=== PATIENT | female | born 1935 | race Caucasian/White ===

== ENCOUNTER 2020-03-16 18:58 | Emergency (ER) | payer OTHER, SELFPAY ==
[2020-03-16 19:18] VITALS: BP 180/92; PULSE 85; RESP 18; TEMP 37.3; O2SAT 97
--- NOTE | 2020-03-16 19:25 | ED.NAVMDI ---
HPI - Nausea/Vomiting/Diarrhea General Chief complaint: Nausea/Vomiting/Diarrhea Stated complaint: Nausea/Vomitting Time Seen by Provider: 03/16/20 19:18 Source: patient and RN notes reviewed Mode of arrival: ambulatory Limitations: no limitations History of Present Illness HPI Narrative: 84 year old female who presents to [facility] care with complaints of nausea and vomiting since 0700 this morning. Patient denies any pain to her abdomen, states that she can't even hold down water. Patient states that she called her doctor's office and they told her to come into office if it continued but she states that it had decreased and then has increased again. Patient states that she has been urinating today and she did have one diarrhea stool. Patient denies any fevers, chills, or sweats, denies any cough or any shortness of breath. MD elicited complaint: nausea, vomiting and diarrhea Onset (ago): hour(s) Description of vomiting: food contents and watery Description of diarrhea: lose Associated nausea: Yes Associated abdominal pain: No Relieving factors: none Treatment prior to arrival: none Related Data Home Medications Medication Instructions Recorded Confirmed hydrochlorothiazide 12.5 mg DAILY 03/16/20 03/16/20 Allergies Allergy/AdvReac Type Severity Reaction Status Date / Time No Known Allergies Allergy Mild Verified 03/16/20 19:04 Review of Systems Review of Systems: Narrative: CONSTITUTIONAL: Denies fever, chills, or sweats. EYES: Denies visual changes, redness, or discharge. ENT: Denies rhinorrhea, congestion, sore throat, or otalgia. CARDIOVASCULAR: Denies chest pain, palpitations, or edema. RESPIRATORY: Denies cough or dyspnea. GASTROINTESTINAL: Denies abdominal pain,positive for nausea, vomiting,and one small loose stool GENITOURINARY: Denies dysuria or hematuria. SKIN: Denies rash or itching. MUSCULOSKELETAL: Denies back pain, joint pain, or myalgia. NEUROLOGIC: Denies headache, numbness, or weakness. PSYCHIATRIC: Denies anxiety or depression. All systems reviewed & are unremarkable except as noted in HPI and below PMFSH Past Medical History Medical History (Updated 03/17/20 @ 00:00 by Bipin Longo) Hyperlipidemia Hypertension Surgical History Surgical History (Updated 03/16/20 @ 19:29 by Katherine Bailey NP) H/O hernia repair History of partial hysterectomy Hx of tonsillectomy Social History Social History (Updated 03/16/20 @ 19:29 by Katherine Bailey NP) Smoking status: Never smoker Occupation/Education: retired Gender identity (if verbalized by the patient): Female Comments At time of signature, agree with nursing past medical, surgical, social history. There is no relevant family history pertinent to the presenting complaint Exam Narrative: Exam Narrative: GENERAL: Well-appearing, well-nourished, and in no acute distress. HEAD: Normocephalic, atraumatic. EYES: PERRLA and EOMI. ENT: Nares clear, no rhinorrhea or epistaxis. Mucous membranes moist. NECK: Supple.no lymphadenopathy CHEST: Clear to auscultation. No respiratory distress.SAO2 97% on room air. HEART: Regular rate and rhythm. No murmur heard. Normal peripheral pulses. ABDOMEN: Soft, nontender, nondistended, normal active bowel sounds. nausea and vomiting, diarrhea X 1.No CVA tenderness EXTREMITIES: Normal range of motion. No edema. SKIN: Warm, dry, no rash. NEURO: No focal deficits. Alert and oriented x3. Course Vital Signs Vital signs: Vital Signs Temperature 37.3 C 03/16/20 19:18 Pulse Rate 85 03/16/20 19:18 Respiratory Rate 18 03/16/20 19:18 Blood Pressure 180/92 H 03/16/20 19:18 Pulse Oximetry 97 03/16/20 19:18 Temperature 37.3 C 03/16/20 19:18 Pulse Rate 85 03/16/20 19:18 Respiratory Rate 18 03/16/20 19:18 Blood Pressure 180/92 H 03/16/20 19:18 Pulse Oximetry 97 03/16/20 19:18 MDM - Nausea/Vomiting/Diarrhea MDM Narrative Medical decision making narrative: Patient rec
[2020-03-16] MEDS: ONDANSETRON HCL ODT 4 MG TABLET PO (19:30)
== END 2020-03-16 19:58 | disposition home or self-care (01) ==
PROVIDERS: Emergency Provider Registered Nurse
DX: N30.00 Acute cystitis without hematuria (principal); E78.5 Hyperlipidemia, unspecified; I10 Essential (primary) hypertension; Z90.711 Acquired absence of uterus with remaining cervical stump
CPT/HCPCS: 81003; 87086; 87088; 99213; A9270; G0463

== ENCOUNTER 2025-01-17 10:19 | Inpatient (IN) | payer OTHER, SELFPAY ==
[2025-01-17] VITALS (8 sets, daily range): BP systolic 124–145; BP diastolic 58–80; PULSE 64–88; RESP 12–20; TEMP 36.2–36.7; O2SAT 96–100; BMI 26.5
--- NOTE | ~2025-01-17 | MR_ITS ---
EXAMINATION: MRA brain wo con DATE: 01/20/2025 15:06 INDICATION: Altered mental status TECHNIQUE: Magnetic resonance angiography (MRA) of the brain was performed without intravenous contrast by the 3 D [id number] technique. COMPARISON: None. Reference is made to a CT examination of the head dated 01/17/2025 demonstrating thang rovascular ischemic disease and age-related change. FINDINGS: Head MRA: No significant stenosis or aneurysmal dilatation within the bilateral internal carotid jack wilber. Symmetric perfusion is observed within the bilateral anterior cerebral arteries. Symmetric perfusion is demonstrated within the bilateral middle cerebral arteries. The [place] is intact. The right vertebral artery is dominant. The left vertebral artery is diminutive, and poorly visualized past the spine. IMPRESSION: Unremarkable MRA examination of the brain, as detailed above. Reviewed, dictated and finalized at location A.
--- NOTE | ~2025-01-17 | CT_ITS ---
CT head without contrast Indication: Altered mental status Technique: Serial scans were obtained through the brain without the administration of contrast. Dose reduction technique was used on this scan by utilizing automated exposure control and iterative recon struction technique. The dose-length product (DLP) was 605.33 mGy-cm. Findings: There is no evidence of intracranial hemorrhage, mass lesion, or acute infarct. The ventri cles and subarachnoid spaces are dilated, consistent with mild atrophy. There is no evidence of theresa a, mass effect or midline shift. The visualized paranasal sinuses and mastoid air cells are clear. Impression: No intracranial hemorrhage, mass, or acute infarct. Mild generalized atrophy. Reviewed, dictated and finalized at location . Impression: No intracranial hemorrhage, mass, or acute infarct. Mild generalized atrophy.
--- OUTSIDE RECORDS SUMMARY | 2025-01-17 10:28 | XMS_ITS | Encounter Summary ---
Author Organization [facility] Address [facility] [place] [address] Care Team Providers Care Vehicle Controls Engineer Name Role Phone Elliott Magana DO Primary Care Provider Tawanda Reich MD Primary Care Provider [phone] Encounter Details Date Type Department Care Team (Latest Contact Info) Description 05/06/2018 Abstract [facility] , Qamar Jaramillo MD Social History Tobacco Use Types Packs/Day Years Used Date Smoking Tobacco: Never Assessed Comments Unknown Sex and Gender Information Value Date Recorded Sex Assigned at Not on file Legal Sex Female 7:19 PM CDT Gender Identity Not on file Sexual Orientation Not on file documented as of this encounter Plan of Treatment Not on file documented as of this encounter Visit Diagnoses Not on filedocumented in this encounter Care Teams Vehicle Controls Engineer Relationship Specialty Start Date End Date Elliott Magana DO [address] [place] [address] PCP - General 11/28/16 10/11/18 Tawanda Reich MD [address] [id number] PCP - General FAMILY PRACTICE 10/12/18 documented as of this encounter
--- OUTSIDE RECORDS SUMMARY | 2025-01-17 10:28 | XMS_ITS | Clinical Summary ---
Author Organization [facility] Address [facility] [place] [address] Care Team Providers Care Inspector [employer]icon[employer] Wafer Name Role Phone Tawanda Reich MD Primary Care Provider [phone] Allergies No known active allergies Medications hydroCHLOROthiazide (MICROZIDE) 12.5 MG capsuleIndications:E ssential hypertension,Aortic atherosclerosis Take 1 capsule (12.5 mg total) by mouth 2 (two) times a day. 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 be havioral disturbance, psychotic disturbance, mood disturbance, or anxiety, unspecified dementia type 06/06/2023 Edema, unspecified type 03/18/2023 Dysphagia, unspecified type 04/02/2022 Rectocele 03/19/2022 OAB (overactive bladder) 03/19/2022 Aortic atherosclerosis 03/20/2019 Mixed hyperlipidemia 12/17/2012 Overview (02/20/2019): Description: stable Essential hypertension 12/17/2012 Overview (02/20/2019): Description: stable Resolved Problems Problem Noted Date Diagnosed Date Resolved Date Frequent urination 03/19/2022 3 Routine general medical exam ination at a health care facility 09/10/2012 09/24/2022 Immunizations Immunization Administration Dates Next Due Tdap (Generic) 06/01/2023 Family History Medical History Relation Comments Cancer Other stomach cancer Relation Status Comments Other Social History Tobacco Use Types Packs/Day Years Used Date Smoking Tobacco: Never Smokeless Tobacco: Never Alcohol Use Standard Drinks/Week Comments No 0 (1 standard drink = 0.6 oz pur e alcohol) AUDIT-C Answer Date Recorded Frequency of Alcohol Consumption Never 02/20/2019 Average Number of Drinks Not on file 019 Frequency of Binge Drinking Not on file 01/30 Comments No Sex and Gender Information Value Date Recorded Sex Assigned at Not on file Legal Sex Female 7:19 PM CDT Gender Identity Not on file Sexual Orientation Not on file Last Filed Vital Signs Vital Sign Reading Time Taken Comments Blood Pressure 142/72 07/18/2023 12:50 PM 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 Pulse 76 09/11/2021 7:45 AM CDT Temperature 37.2 C (98.9 F) 03/02/2021 1:13 AM CDT Respiratory Rate 18 03/02/2021 1:13 AM CDT Oxygen Saturation 98% 03/02/2021 4:15 AM CDT Inhaled Oxygen Concentration - - Weight 57.2 kg (126 lb) 07/18/2023 12:50 PM 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 Height 149.9 cm (4' 11) 09/17/2022 9:01 AM CDT Body Mass Index 25.45 09/17/2022 9:01 AM CDT Plan of Treatment Health Maintenance Due Date Last Done Comments ASCVD Statin 1936 Pneumococcal Vaccine: 50+ Years (1 of 1 - PCV) 1986 Zoster Vaccines (1 of 2) 1986 Annual Medicare Wellness Visit 2001 RSV Immunization or 60+ Years (1 - 1-dose 75+ series) 2011 ASCVD LDL 09/18/2023 09/17/2022, 08/29, 09/08/2020, Additional history exists COVID-19 Vaccine ( - season) 2024 DTaP, Tdap and Td Vaccines (2 - Td or Tdap) 06/01/2033 06/01/2023 Meningococcal B Vaccine Aged Out No l onger eligible based on patient's age to complete this topic Meningococcal Vaccine Aged Out No brionna arleen eligible based on patient's age to complete this topic RSV Immunizations Under 20 Months Aged Out No longer eligible based on patient's age to complete this topic Procedures Procedure Name Priority Date/Time Associated Diagnosis Comments LIPID PANEL Routine 09/17/2022 9:26 AM CDT Mixed hyperlipidemia Essential hypertension Aortic atherosclerosis from Last 3 Months or Most Recently Relevant to Health Maintenance Results * LIPID PANEL (09/17/2022 9:26 AM CDT) CHOLESTEROL 172 <200 mg/dL [facility] HDL 72 > OR = 50 mg/dL [facility] TRIGLYCERIDES 87 <150 mg/dL [facility] LDL (CALCULATED) 82 mg/dL (calc) [employer] Comment: Reference range: <100 Desirable range <100 mg/dL for primary prevention; <70 mg/dL for patients with CHD or diabetic patients with > or = 2 CHD risk factors. LDL-C is now calculated using the Seferino-Lisa calculation, which is a validated novel method providing better accuracy than the Friedewald equation in the estimation of LDL-C. Seferino SS et al. JOY. 2013;310(19): 0030-3106 (http://education.[employer]/faq/KQS104) CHOL/HDL RATIO 2.4 <5.0 (calc) [facility] NON HDL CHOLESTEROL 100 <130 mg/dL (calc) [facility] Comment: For patients with diabetes plus 1 major ASCVD risk factor, treating to a non-HDL-C goal of <100 mg/dL (LDL-C of <70 mg/dL) is considered a therapeutic option. 09/17/2022 9:26 AM CDT 09/18/2022 6:54 AM CDT Narrative Resulting Agency Comment Performing Organization Information: Site ID: [id number] Name: [facility] Address: [address] [id number] Director: Priyanka Russell MD us Tawanda Reich MD LABORATORY Final Resul t [facility] [id number] [address] [id number], from Last 3 Months or Most Recently Relevant to Health Maintenance Insurance [employer] Care Teams Inspector [employer]iconductor Wafer Relationship Specialty Start Date End Date Tawanda Reich MD [address] [phone] PCP - General FAMILY PRACTICE 10/12/18
--- OUTSIDE RECORDS SUMMARY | 2025-01-17 10:29 | XMS_ITS | Referral Summary ---
Author Organization [facility] Address [address] [place] [address] Care Team Providers Care Chef Concierge Name Role Phone Nicole Youssef DO Primary Care Provider [phone]- [phone] Encounters Date Type Department Care Team Description 12/21/2024 4:16 PM CDT - 12/21/2024 10:45 PM CDT [facility] Emergency Department [address] [place] [address] Prolapse of vaginal mckay (Primary Dx) Discharge Disposition: Discharge to home or self care from Last 3 Months Allergies No known active allergies Medications No known medications Active Problems No known active problems Immunizations Immunization Administration Dates Next Due Tdap 06/01/2023 Social History Tobacco Use Types Packs/Day Years Used Date Smoking Tobacco: Never Assessed Personal Safety Answer Date Recorded Have you ever been in or are you currently in a harmful physical or emotional relationship or is someone making you feel afraid or unsafe? 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 COPY EDITOR Gender Identity Female 06/16/2023 10:54 AM NEWS COPY EDITOR Sexual Orientation Straight 06/16/2023 10 :55 AM NEWS COPY EDITOR Last Filed Vital Signs Vital Sign Reading Time Taken Comments Blood Pressure 152/74 12/21/2024 8:30 PM CDT Pulse 71 12/21/2024 8:30 PM CDT Temperature 36.3 C (97.4 F) 12/21/2024 5:18 PM CDT Respiratory Rate 14 12/21/2024 8:30 PM CDT Oxygen Saturation 97% 12/21/2024 8:30 PM CDT Inhaled Oxygen Concentration - - Weight 67.4 kg (148 lb 9.4 oz) 12/21/2024 4:10 P M CDT Height 149.9 cm (4' 11) 12/21/2024 4:10 PM CDT Body Mass Index 30.01 12/21/2024 4:10 PM CDT Plan of Treatment Not on file Procedures Procedure Name Priority Date/Time Associated Diagnosis Comments CT ABDOMEN PELVIS W CONTRAST ED 12/21/2024 6:44 PM CDT URINALYSIS AND REFLEX TO MICROSCOPIC AND CULTURE STAT 12/21/2024 5:17 PM CDT EGFR STAT 12/21/2024 4:34 PM CDT DIFFERENTIAL AUTO STAT 12/21/2024 4:3 4 PM CDT COMPREHENSIVE METABOLIC PANEL STAT 12/21/2024 4:34 PM CDT CBC WITH AUTO DIFFERENTIAL STAT 12/21/2024 4:34 PM CDT from Last 3 Months Results * CT Abdomen Pelvis W Contrast (12/21/2024 6:44 PM CDT) Anatomical Region Laterality Modality Body N/A Computed Tomogra phy 12/21/2024 8:55 PM CDT Narrative 12/21/2024 9:17 PM CDT EXAM DESCRIPTION: CT ABDOMEN PELVIS W CONTRAST REASON FOR STUDY: Abdominal pain, acute, nonlocalized c/o vaginal prolapse. Patient states that she had a vaginal prolapse about 2 years ago and family reports that they went to the doctor and they gave her MiraLax but did not do anything else. She has never followed up with a urogynecologist. Over the last couple days patient states it has been more bothersome. She has been having urinary incontinence or urine just dribbles out. She has been having normal bowel movements. Denies any abdominal pain, nausea or vomiting. TECHNIQUE: CT scan of the abdomen and pelvis performed with intravenous and without oral contrast using helical scanning technique with dynamic intravenous contrast injection. Reconstructed coronal and sagittal MPR images reviewed. All images stored on PACS. Automated exposure control was used as a dose optimization technique for this examination. CONTRAST TYPE/DOSE: 100mL of IOVERSOL 350 MG IODINE/ML INTRAVENOUS SYRINGE injected via intravenous COMPARISON: 07/17/2024 FINDINGS: LOWER CHEST: No significant pulmonary abnormalities. No effusion. Large hiatal hernia. The entire stomach is located above the diaphragm. LIVER: Normal size. 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 GALLBLADDER: Surgically absent. BILE DUCTS: No intrahepatic or extrahepatic ductal dilatation. SPLEEN: Normal size. No focal lesions. PANCREAS: No identified cystic or solid masses. No significant calcifications. No adjacent inflammation or peripancreatic fluid collections. Pancreatic duct not dilated. ADRENALS: Normal. KIDNEYS/URINARY TRACT: There is moderate bilateral hydronephrosis and hydroureter, but there is no obstructing renal or ureteral calculus. 1.4 cm left renal cyst. The bladder is somewhat distended and there is a prominent cystocele. Additionally, there is both rectal and vaginal prolapse. Suspect a degree of bladder outlet obstruction due to the vaginal prolapse resulting in bilateral hydronephrosis. Prolapsed vaginal tissue extends anteriorly along the entire bladder base. The vagina extends approximately 7 cm below the pubococcygeal line, while the rectum extends approximately 5 cm below the line. Gynecologic consultation recommended. GI: No dilated bowel loops. No obvious wall thickening. Normal appendix. Scattered diverticular disease without diverticulitis. PERITONEUM: No ascites or free air. RETROPERITONEUM: No mass or adenopathy. REPRODUCTIVE: No significant abnormality. 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 No concerning lesions are present. OTHER: Small periumbilical hernia containing only fat. IMPRESSION: 1. Moderate bilateral hydronephrosis and hydroureter, but there is no obstructing renal or ureteral calculus. 2. The bladder is somewhat distended and there is a prominent cystocele. Additionally, there is both rectal and vaginal prolapse. Suspect a degree of bladder outlet obstruction due to the vaginal prolapse resulting in bilateral hydronephrosis. Prolapsed vaginal tissue extends anteriorly along the entire bladder base. The vagina extends approximately 7 cm below the pubococcygeal line, while the rectum extends approximately 5 cm below the line. Gynecologic consultation recommended. 3. 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 4. Surgical absence of the gallbladder. 5. Large hiatal hernia. The entire stomach is located above the diaphragm. 6. Diverticulosis. No evidence of diverticulitis. 7. Small periumbilical hernia containing only fat. THIS IS AN ELECTRONICALLY VERIFIED FINAL REPORT 12/21/2024 9:17 PM - Electronically signed by Juwan Mercado M.D. KT: TERESSA Report ID: [id number] Reading Location: [id number] Procedure Note Juwan eMrcado MD - 12/21/2024 EXAM DESCRIPTION: CT ABDOMEN PELVIS W CONTRAST REASON FOR STUDY: Abdominal pain, acute, nonlocalized c/o vaginal prolapse. Patient states that she had a vaginal prolapseabout 2 years ago and family reports that they went to the doctor and they gaveher MiraLax but did not do anything else. She has never followed up with a urogynecologist. Over the last couple days patient states it has beenmore bothersome. She has been having urinary incontinence or urine justdribbles out. She has been having normal bowel movements. Denies any abdominalpain, nausea or vomiting. TECHNIQUE: CT scan of the abdomen and pelvis performed with intravenousand without oral contrast using helical scanning technique with dynamic intravenous contrast injection. Reconstructed coronal and sagittal MPRimages reviewed. All images stored on PACS. Automated exposure control was usedas a dose optimization technique for this examination. CONTRAST TYPE/DOSE: 100mL of IOVERSOL 350 MG IODINE/ML INTRAVENOUSSYRINGE injected via intravenous COMPARISON: 07/17/2024 FINDINGS: LOWER CHEST: No significant pulmonary abnormalities. Noeffusion. Large hiatal hernia. The entire stomach is located above the diaphragm. LIVER: Normal size. 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 GALLBLADDER: Surgically absent. BILE DUCTS: No intrahepatic or extrahepatic ductal dilatation. SPLEEN: Normal size. No focal lesions. PANCREAS: No identified cystic or solid masses. No significant calcifications. No adjacent inflammation or peripancreatic fluidcollections. Pancreatic duct not dilated. ADRENALS: Normal. KIDNEYS/URINARY TRACT: There is moderate bilateral hydronephrosis and hydroureter, but there is no obstructing renal or ureteral calculus. 1.4cm left renal cyst. The bladder is somewhat distended and there is aprominent cystocele. Additionally, there is both rectal and vaginal prolapse.Suspect a degree of bladder outlet obstruction due to the vaginal prolapseresulting in bilateral hydronephrosis. Prolapsed vaginal tissue extends anteriorly along the entire bladder base. The vagina extends approximately 7 cmbelow the pubococcygeal line, while the rectum extends approximately 5 cm belowthe line. Gynecologic consultation recommended. GI: No dilated bowel loops. No obvious wall thickening. Normal appendix. Scattered diverticular disease without diverticulitis. PERITONEUM: No ascites or free air. RETROPERITONEUM: No mass or adenopathy. REPRODUCTIVE: No significant abnormality. 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 No concerning lesions are present. OTHER: Small periumbilical hernia containing only fat. IMPRESSION: 1. Moderate bilateral hydronephrosis and hydroureter, but there is no obstructing renal or ureteral calculus. 2. The bladder is somewhat distended and there is a prominent cystocele. Additionally, there is both rectal and vaginal prolapse. Suspect a degreeof bladder outlet obstruction due to the vaginal prolapse resulting inbilateral hydronephrosis. Prolapsed vaginal tissue extends anteriorly along theentire bladder base. The vagina extends approximately 7 cm below thepubococcygeal line, while the rectum extends approximately 5 cm below the line.Gynecologic consultation recommended. 3. Stable 4 cm enhancing lesion in the right hepatic lobe compared with 07/17/2024, probably representing an aneurysm of the portal venoussystem. 4. Surgical absence of the gallbladder. 5. Large hiatal hernia. The entire stomach is located above thediaphragm. 6. Diverticulosis. No evidence of diverticulitis. 7. Small periumbilical hernia containing only fat. THIS IS AN ELECTRONICALLY VERIFIED FINAL REPORT 12/21/2024 9:17 PM - Electronically signed by Juwan Mercado M.D. KT: TERESSA Report ID: [id number] Reading Location: [id number] [place] IMG CT PROCEDURES Final Result * Urinalysis reflex to microscopic and culture Urine (12/21/2024 5:17 PM CDT) Color, ur Straw Yellow Comment:Testing performed by : [address] [address] Clarity, ur Clear Clear MIREYA Comment:Testing performed by : [address] [address] Specific gravity, ur 1.007 1.003 - 1.030 MIREYA Comment:Testing performed by : [address] [address] pH, urine 7.5 MIREYA Comment: Interpretive Data U rine pH is affected by diet, medications, systemic acid-base disturbances, and renal tubular function. pH may affect urinary stone formation. For example, urine pH below 6.0 may help reduce the tendency for calcium phosphate stones and pH greater than 6.0 may reduce the tendency for uric acid stone formation. Source: [facility] [employer] Current Interpretive Data was last revised on 2017 Testing performed by: [address] [address] Protein, ur ql Negative Negative MIREYA Comment:Testing performed by : [address] [address] Glucose, ur ql Negative Negative MIREYA Comment:Testing performed by : [address] [address] Ketones, ur Negative Negative MIREYA Comment:Testing performed by : [address] [address] Bilirubin, ur Negative Negative MIREYA Comment:Testing performed by : [address] [address] Blood, ur Negative Negative MIREYA Comment:Testing performed by : [address] [address] Urobilinogen, ur <2.0 <2.0 mg/dL MIREYA LOVELL Comment:Testing performed by : [facility], [address] [place] [address]., [address] Nitrite, ur Negative Negative MIREYA LOVELL Comment:Testing performed by : [address] [address] Leukocyte esterase, ur Negative Negative MIREYA LOVELL Comment:Testing performed by : [address], [place]., [address] UA reflex comment Reflex conditions for microscopic UA and culture not met. MIREYA LOVELL Comment:Testing performed by : [address], [place]., [address] Urine 12/21/2024 5:17 PM CDT 12/21/2024 5:24 PM CDT us Giulia [place] LAB MICROBIOLOGY - GENERAL ORDER TACHO Final Result MIREYA LOVELL [address] [facility] [place] [address] * eGFR (12/21/2024 4:34 PM CDT) eGFR 65 >=60 mL/min/1. 73 m2 Comment: Interpretive Data Reference Interval Normal >/= 90 mL/min/1.73m2 Mildly decreased* 60 - 89 mL/min/1.73m2 Mildly to moderately decreased 45 - 59 mL/min/1.73m2 Moderately to severely decreased 30 - 44 mL/min/1.73m2 Severely decreased 15 - 29 mL/min/1.73m2 Kidney Failure < 15 mL/min/1.73m2 *Relative to young adult level Estimated glomerular filtration rate is determined by the 2020 CKD-EPI equation recommended by the National Kid[employer] (A Unifying Approach to GFR Estimation: Recommendations of the NKF-ASK Task Force on Reassessing the Inclusion of Race in Diagnosing Kidney Disease, JASN 202). The CKD-EPI equation should not be used for patients with unstable renal function and has not been validated in children and those over 70. Current interpretive data was last reviewed 2021. Testing performed by: [address] [address] Blood 12/21/2024 4:34 PM CDT 12/21/2024 4:38 PM CDT us Giulia CA LAB BLOOD ORDERABLES Final Resul t MIREYA [address] [facility] [place] [address] * Differential, auto (12/21/2024 4:34 PM CDT) Neutrophil abs 5.97 1.50 - 6.50 K/cumm Comment:Testing performed by : [address] [address] Imm gran abs 0.03 0.00 - 0.10 K/cumm MIREYA Comment:Testing performed by : [address] [address] Lymphocyte abs 1.90 0.80 - 3.30 K/cumm MIREYA Comment:Testing performed by : [address] [address] Monocyte abs 0.59 0.20 - 0.80 K/cumm MIREYA Comment:Testing performed by : [address] [address] Eosinophil abs 0.04 0.00 - 0.50 K/cumm MIREYA Comment:Testing performed by : [address] [address] Basophil abs 0.06 0.00 - 0.10 K/cumm MIREYA Comment:Testing performed by : [address] [address] Neutrophil pct 69.5 % MIREYA Comment: Interpretive Data Percent cell count reference ranges are not reported, since discordance with absolute values may lead to misinterpretation of CBC data. Current Interpretive Data was last revised on 2017. Testing performed by: [address] [address] Imm gran pct 0.3 % MIREYA Comment: Interpretive Data Percent cell count reference ranges are not reported, since discordance with absolute values may lead to misinterpretation of CBC data. Current Interpretive Data was last revised on 2017. Testing performed by: [address] [address] Lymphocyte pct 22.1 % [facility] Comment: Interpretive Data Percent cell count reference ranges are not reported, since discordance with absolute values may lead to misinterpretation of CBC data. Current Interpretive Data was last revised on 2017. Testing performed by: [address] [address] Monocyte pct 6.9 % [facility] Comment: Interpretive Data Percent cell count reference ranges are not reported, since discordance with absolute values may lead to misinterpretation of CBC data. Current Interpretive Data was last revised on 2017. Testing performed by: [address] [address] Eosinophil pct 0.5 % [facility] Comment: Interpretive Data Percent cell count reference ranges are not reported, since discordance with absolute values may lead to misinterpretation of CBC data. Current Interpretive Data was last revised on 2017. Testing performed by: [address] [address] Basophil pct 0.7 % [facility] Comment: Interpretive Data Percent cell count reference ranges are not reported, since discordance with absolute values may lead to misinterpretation of CBC data. Current Interpretive Data was last revised on 2017. Testing performed by: [address] [address] Blood 12/21/2024 4:34 PM CDT 12/21/2024 4:38 PM CDT us Giulia CA LAB BLOOD ORDERABLES Final Resul t MIREYA [address] [facility] [place] [address] * CBC with auto differential (12/21/2024 4:34 PM CDT) WBC 8.59 3.80 - 9.90 K/cumm Comment:Testing performed by : [address] [address] Hgb 14.0 11.9 - 15.5 g/dL MIREYA Comment:Testing performed by : [address] [address] Hct 43.3 35.6 - 45.5 % MIREYA Comment:Testing performed by : [address] [address] Plt 269 150 - 400 K/cumm MIREYA Comment:Testing performed by : [address] [address] MPV 10.1 9.1 - 12.3 fL MIREYA Comment:Testing performed by : [address], [address] RBC 4.91 3.90 - 5.20 M/cumm MIREYA Comment:Testing performed by : [address] [address] MCV 88.2 81.3 - 96.4 fL MIREYA Comment:Testing performed by : [address] [address] MCH 28.5 27.1 - 33.3 pg MIREYA Comment:Testing performed by : [address] [address] MCHC 32.3 32.3 - 35.7 g/dL MIREYA Comment:Testing performed by : [address] [address] RDW CV 14.3 11.1 - 14.9 % MIREYA Comment:Testing performed by : [address] [address] RDW SD 46.2 35.7 - 48.1 fL MIREYA Comment:Testing performed by : [address] [address] NRBC abs 0.00 0.00 - 0.01 K/cumm MIREYA Comment:Testing performed by : [address] [address] Blood 12/21/2024 4:34 PM CDT 12/21/2024 4:38 PM CDT us Giulia CA LAB BLOOD ORDERABLES Final Resul t MIREYA [address] [facility] [place] [address] * (ABNORMAL) Comprehensive metabolic panel (12/21/2024 4:34 PM CDT) Sodium 137 135 - 145 mmol/L Comment:Testing performed by : [address] [address] Potassium, pl 5.0(H) 3.3 - 4.9 mmol/L MIREYA Comment: Hemolyzed; Potassium value may be falsely elevated by as much as 1.0 mmol/L. Suggest redraw and reanalysis. Testing performed by: [address] [address] Chloride 101 97 - 110 mmol/L MIREYA Comment:Testing performed by : [address] [address] CO2 25 22 - 32 mmol/L MIREYA Comment:Testing performed by : [address] [address] Anion gap 11 2 - 15 mmol/L MIREYA Comment:Testing performed by : [address] [address] BUN 18 6 - 25 mg/dL MIREYA Comment:Testing performed by : [address] [address] Creatinine 0.86 0.60 - 1.10 mg/dL MIREYA Comment:Testing performed by : [address] [address] Glucose 97 70 - 199 mg/dL MIREYA Comment: Interpretive Data Fasting glucose >/= 126 mg/dl is diagnostic for diabetes. Fasting is defined as no caloric intake for at least 8 hours. Fasting glucose between 100 mg/dl to 125 mg/dl is diagnostic of prediabetes. In a patient with classic symptoms of hyperglycemia or hyperglycemic crisis, a random glucose >/= 200 mg/dl is diagnostic for diabetes. In the absence of unequivocal hyperglycemia, results should be confirmed by repeat testing. The classification and Diagnosis of Diabetes Diabetes Care 2021; 46: S19-S40. Current interpretive data was last revised 2022. Testing performed by: [facility], [address] [place] [address]., [address] Calcium 9.8 8.5 - 10.3 mg/dL MIREYA Comment:Testing performed by : [address] [address] Bilirubin, total 0.4 0.1 - 1.2 mg/dL MIREYA Comment:Testing performed by : [address] [address] Protein, pl 7.2 6.5 - 8.5 g/dL MIREYA Comment:Testing performed by : [address] [address] Albumin 4.2 3.5 - 5.0 g/dL MIREYA Comment:Testing performed by : [address] [address] Alk phos 90 40 - 130 Units/L MIREYA Comment:Testing performed by : [address] [address] ALT 12 7 - 45 Units/L MIREYA Comment:Testing performed by : [address] [address] AST 23 10 - 45 Units/L MIREYA Comment: Hemolyzed; result may be falsely elevated Testing performed by: [address] [address] Blood 12/21/2024 4:34 PM CDT 12/21/2024 4:38 PM CDT us [facility] LAB BLOOD ORDERABLES Final Resul t MIREYA [address] [facility] [place] [address] from Last 3 Months Insurance [facility] Care Teams Chef Concierge Relationship Specialty Start Date End Date Nicole Youssef DO PCP - General Internal Medicine 07/17/24
--- OUTSIDE RECORDS SUMMARY | 2025-01-17 10:29 | XMS_ITS | Clinical Summary ---
Author Organization [facility] Address [address] [place] [address] Care Team Providers Care Food Management Aide Name Role Phone Domonique Nicolemckinley Sargent DO Primary Care Provider [phone] Allergies No known active allergies Medications No known medications Active Problems No known active problems Encounters Date Type Department Care Team Description 12/21/2024 4:16 PM CDT - 12/21/2024 10:45 PM CDT Emergency [facility] [address] [place] [id number] Prolapse of vaginal mckay (Primary Dx) Discharge Disposition: Discharge to home or self care from Last 3 Months Immunizations Immunization Administration Dates Next Due Tdap [...] on file Legal Sex Female 5:45 PM [employer] Gender Identity Female 06/16/2023 10:54 AM [employer] E[employer]MENT INST[employer]ER Sexual Orientation Straight 06/16/2023 10 :55 AM [employer] EQU[employer]MENT INST[employer]ER Obstetrics History Last Filed Vital Signs Vital Sign Reading [...] 12/21/2024 4:10 PM CDT Plan of Treatment Health Maintenance Due Date Last Done Comments Depression Screening 1936 Fall Risk Assessment 1936 Osteoporosis Screening-Bone Density Scan 1936 Hepatitis B Screening 1954 Pneumococcal vaccine 65+ (1 of 1 - PCV) 1986 Zoster Vaccine (1 of 2) 1986 Well Visit 65+ 2001 Influenza Vaccine (#1) 2025 DTaP/Tdap/Td Vaccine (2 - Td or Tdap) 06/01/203308/2022 Procedures Procedure Name Priority Date/Time Associated Diagnosis [...] Juwan Mercado M.D. KT: TERESSA Report ID: [id number] Reading Location: [id number] Procedure Note Juwan Mercado MD - 12/21/2024 EXAM DESCRIPTION: CT ABDOMEN [...] Juwan Mercado M.D. KT: TERESSA Report ID: [id number] Reading Location: [place] [address] [place] [address] PROCEDURES Final Result * Urinalysis reflex to microscopic and culture Urine (12/21/2024 5:17 PM CDT) Color, ur Straw Yellow Comment:Testing performed by : [address] [address] Clarity, ur Clear Clear MIREYA Comment:Testing performed by : [address] [address] Specific gravity, ur 1.007 1.003 - 1.030 MIREYA Comment:Testing performed by : [address] [address] pH, urine 7.5 MIREYA Comment: Interpretive Data U rine pH is affected by diet, medications, systemic acid-base disturbances, and renal tubular function. pH may affect urinary stone formation. For example, urine pH below 6.0 may help reduce the tendency for calcium phosphate stones and pH greater than 6.0 may reduce the tendency for uric acid stone formation. Source: [employer] Current Interpretive Data was last revised on 2017 Testing performed by: [address] [address] Protein, ur ql Negative Negative MIREYA Comment:Testing performed by : [address] [address] Glucose, ur ql Negative Negative MIREYA Comment:Testing performed by : [address] [address] Ketones, ur Negative Negative MIREYA LOVELL Comment:Testing performed by : [facility], [address] [place] [address], [place]., [address] Bilirubin, ur Negative Negative MIREYA Comment:Testing performed by : [address], [place]., [address] Blood, ur Negative Negative MIREYA Comment:Testing performed by : [address], [place]., [address] Urobilinogen, ur <2.0 <2.0 mg/dL MIREYA Comment:Testing performed by : [address], [place]., [address] Nitrite, ur Negative Negative MIREYA Comment:Testing performed by : [address], [place]., [address] Leukocyte esterase, ur Negative Negative MIREYA Comment:Testing performed by : [address], [place]., [address] UA reflex comment Reflex conditions for microscopic UA and culture not met. MIREYA Comment:Testing performed by : [address], [place]., [address] Urine 12/21/2024 5:17 PM CDT 12/21/2024 5:24 PM CDT [place] LAB MICROBIOLOGY - GENERAL ORDER TACHO Final Result MIREYA [address] [facility] Department [place] [address] * eGFR (12/21/2024 4:34 PM CDT) eGFR [...] was last reviewed 2021. Testing performed by: [address] [address] Blood 12/21/2024 4:34 PM CDT 12/21/2024 4:38 PM CDT us [place] LAB BLOOD ORDERABLES Final Resul t MIREYA [address] [facility] Department [place] [address] * Differential, auto (12/21/2024 4:34 PM CDT) Neutrophil abs 5.97 1.50 - 6.50 K/cumm Comment:Testing performed by : [address] [address] Imm gran abs 0.03 0.00 - 0.10 K/cumm MIREYA Comment:Testing performed by : [address] [address] Lymphocyte abs 1.90 0.80 - 3.30 K/cumm MIREYA Comment:Testing performed by : [address] [address] Monocyte abs 0.59 0.20 - 0.80 K/cumm MIREYA Comment:Testing performed by : [address] [address] Eosinophil abs 0.04 0.00 - 0.50 K/cumm MIREYA Comment:Testing performed by : [address] [address] Basophil abs 0.06 0.00 - 0.10 K/cumm MIREYA Comment:Testing performed by : [address] [address] Neutrophil pct 69.5 % [facility] Comment: Interpretive Data Percent cell count reference ranges are not reported, since discordance with absolute values may lead to misinterpretation of CBC data. Current Interpretive Data was last revised on 2017. Testing performed by: [address] [address] Imm gran pct 0.3 % [facility] Comment: Interpretive Data Percent cell count reference ranges are not reported, since discordance with absolute values may lead to misinterpretation of CBC data. Current Interpretive Data was last revised on 2017. Testing performed by: [address] [address] Lymphocyte pct 22.1 % [facility] Comment: Interpretive Data Percent cell count reference ranges are not reported, since discordance with absolute values may lead to misinterpretation of CBC data. Current Interpretive Data was last revised on 2017. Testing performed by: [address] [address] Monocyte pct 6.9 % [facility] Comment: Interpretive Data Percent cell count reference ranges are not reported, since discordance with absolute values may lead to misinterpretation of CBC data. Current Interpretive Data was last revised on 2017. Testing performed by: [address] [address] Eosinophil pct 0.5 % [facility] Comment: Interpretive Data Percent cell count reference ranges are not reported, since discordance with absolute values may lead to misinterpretation of CBC data. Current Interpretive Data was last revised on 2017. Testing performed by: [address] [address] Basophil pct 0.7 % [facility] Comment: Interpretive Data Percent cell count reference ranges are not reported, since discordance with absolute values may lead to misinterpretation of CBC data. Current Interpretive Data was last revised on 2017. Testing performed by: [address] [address] Blood 12/21/2024 4:34 PM CDT 12/21/2024 4:38 PM CDT us [place] LAB BLOOD ORDERABLES Final Resul t MIREYA [address] [facility] Department [place] [address] * CBC with auto differential (12/21/2024 4:34 PM CDT) WBC 8.59 3.80 - 9.90 K/cumm Comment:Testing performed by : [address] [address] Hgb 14.0 11.9 - 15.5 g/dL MIREYA Comment:Testing performed by : [address] [address] Hct 43.3 35.6 - 45.5 % MIREYA Comment:Testing performed by : [address] [address] Plt 269 150 - 400 K/cumm MIREYA Comment:Testing performed by : [address] [address] MPV 10.1 9.1 - 12.3 fL MIREYA Comment:Testing performed by : [address] [address] RBC 4.91 3.90 - 5.20 M/cumm MIREYA Comment:Testing performed by : [address] [address] MCV 88.2 81.3 - 96.4 fL MIREYA Comment:Testing performed by : [address] [address] MCH 28.5 27.1 - 33.3 pg MIREYA Comment:Testing performed by : [address] [address] MCHC 32.3 32.3 - 35.7 g/dL MIREYA Comment:Testing performed by : [address] [address] RDW CV 14.3 11.1 - 14.9 % MIREYA Comment:Testing performed by : [address] [address] RDW SD 46.2 35.7 - 48.1 fL MIREYA LOVELL Comment:Testing performed by : [address] [address] NRBC abs 0.00 0.00 - 0.01 K/cumm MIREYA LOVELL Comment:Testing performed by : [address] [address] Blood 12/21/2024 4:34 PM CDT 12/21/2024 4:38 PM CDT us [place] LAB BLOOD ORDERABLES Final Resul t MIREYA LOVELL [address] [facility] Department [place] [address] * (ABNORMAL) Comprehensive metabolic panel (12/21/2024 4:34 PM CDT) Sodium 137 135 - 145 mmol/L Comment:Testing performed by : [address] [address] Potassium, pl 5.0(H) 3.3 - 4.9 mmol/L MIREYA LOVELL Comment: Hemolyzed; Potassium value may be falsely elevated by as much as 1.0 mmol/L. Suggest redraw and reanalysis. Testing performed by: [address] [address] Chloride 101 97 - 110 mmol/L MIREYA LOVELL Comment:Testing performed by : [address] [address] CO2 25 22 - 32 mmol/L MIREYA LOVELL Comment:Testing performed by : [address] [address] Anion gap 11 2 - 15 mmol/L MIREYA LOVELL Comment:Testing performed by : [address] [address] BUN 18 6 - 25 mg/dL MIREYA LOVELL Comment:Testing performed by : [address] [address] Creatinine 0.86 0.60 - 1.10 mg/dL MIREYA LOVELL Comment:Testing performed by : [address] [address] Glucose 97 70 - 199 mg/dL MIREYA [...] was last revised 2022. Testing performed by: [address] [address] Calcium 9.8 8.5 - 10.3 mg/dL MIREYA Comment:Testing performed by : [address] [address] Bilirubin, total 0.4 0.1 - 1.2 mg/dL MIREYA Comment:Testing performed by : [address] [address] Protein, pl 7.2 6.5 - 8.5 g/dL MIREYA Comment:Testing performed by : [address] [address] Albumin 4.2 3.5 - 5.0 g/dL [facility] Comment:Testing performed by : [address] [address] Alk phos 90 40 - 130 Units/L [facility] Comment:Testing performed by : [address] [address] ALT 12 7 - 45 Units/L [facility] Comment:Testing performed by : [address] [address] AST 23 10 - 45 Units/L MIREYA Comment: Hemolyzed; result may be falsely elevated Testing performed by: [address] [address] Blood 12/21/2024 4:34 PM CDT 12/21/2024 4:38 PM CDT us [place] LAB BLOOD ORDERABLES Final Resul t MATILDANER [address] [facility] Department [place] [address] from Last 3 Months Insurance [facility] Care Teams Food Management Aide Relationship Specialty Start Date End Date Nicole Youssef DO PCP - General Internal Medicine 07/17/24
--- NOTE | 2025-01-17 10:43 | ED_ITS ---
HPI - General Adult General Chief complaint: Altered Mental Status Stated complaint: ams History of Present Illness HPI narrative: 89-year-old female presenting to the emergency department for evaluation for concern of vaginal prolapse and confusion. Patient is a poor historian and seems confused about taking medications this morning. Patient denies any falls or injuries. Patient does have a history of hernia repair, tonsillectomy partial hysterectomy a history of high cholesterol hypertension. Related Data Home Medications ?Medication ?Instructions ?Recorded ?Confirmed ?Last Taken ?Type docusate sodium 100 mg capsule 100 mg PO DAILY 01/17/25 01/17/25 Unknown History omeprazole 20 mg capsule,delayed 20 mg PO DAILY 01/17/25 01/17/25 01/17/25 History release spironolactone 50 mg tablet 50 mg PO DAILY 01/17/25 01/17/25 01/17/25 History Allergies Allergy/AdvReac Type Severity Reaction Status Date / Time No Known Allergies Allergy Mild Verified 03/16/20 19:04 Review of Systems 2 Review of Systems: All systems reviewed & are unremarkable except as noted in HPI and below PMFSH Past Medical History Medical History GERD (gastroesophageal reflux disease) Rectal prolapse Vaginal prolapse Hyperlipidemia Hypertension Surgical History Surgical History History of partial hysterectomy H/O hernia repair Hx of tonsillectomy Social History Social History Smoking status: Never smoker Alcohol intake: never Substance use: never Occupation/Education: retired Gender identity (if verbalized by the patient): Female Spiritual care concerns: No Exam 2 Narrative: APPEARANCE: Confused but well-appearing HEAD: normocephalic, atraumatic. EYES: PERRLA/EOMI, conjunctivae clear. NOSE: Normal no drainage EARS:TMS clear with good light reflex. THROAT: Pharynx clear, no exudate. NECK: Supple. No adenopathy, no masses. RESPIRATORY: Airway patent, respirations nonlabored. Clear to auscultation bilaterally, no rales, rhonchi, wheezing. CARDIOVASCULAR: Regular rate and rhythm without murmurs rubs or gallops. ABDOMINAL: Soft, nontender, nondistended, normal bowel sounds MUSCULOSKELETAL: Moves all extremities. Strength/ROM intact, No edema, No calf tenderness. NEURO: Alert. Cranial nerves II through XII intact. Good gait. Good coordination SKIN: Warm, dry. Normal Color Pelvic exam: Mild vaginal prolapse with no vaginal bleeding Course Vital Signs Vital signs: Vital Signs Temperature 97.5 F L 01/17/25 10:20 Pulse Rate 87 01/17/25 10:20 Respiratory Rate 15 01/17/25 10:20 Blood Pressure 145/80 H 01/17/25 10:20 Pulse Oximetry 97 01/17/25 10:20 Oxygen Delivery Room Air 01/17/25 10:20 Temperature 98.1 F 01/17/25 13:30 Pulse Rate 67 01/17/25 13:30 Respiratory Rate 20 01/17/25 13:30 Blood Pressure 125/58 L 01/17/25 13:30 Pulse Oximetry 97 01/17/25 15:07 Oxygen Delivery Room Air 01/17/25 15:07 Medical Decision Making MDM Narrative Medical decision making narrative: 89-year-old female presented emergency department for evaluation for altered mental status. States she was having some issues with vaginal prolapse and called EMS. Patient was found lying on the ground but she states she did not have a fall that she laid on the ground. Patient is afebrile with no leukocytosis. No significant abnormalities on the patient's CMP UA is significant for urinary tract infection. No previous urine cultures on file showing previous is sensitivities. Patient was started on Rocephin in the emergency department. Case was discussed with hospitalist patient was accepted for admission. Patient is appropriate for med surge. Differential Diagnosis Differential Diagnosis: UTI, vaginal prolapse, urinary retention, colitis, diverticulitis, cervical dermatomal, subarachnoid hemorrhage Vital Signs Vital Signs: Vital Signs Temperature 97.5 F L 01/17/25 10:20 Pulse Rate 87 01/17/25 10:20 Respiratory Rate 15 01/17/25 10:20 Blood Pressure 145/80 H 01/17/25 10:20 Pulse Oximetry 97 01/17/25 10:20 Oxygen Delivery Room Air 01/17/25 10:20 Temperature 98.1 F 01/17/25 13:30 Pulse Rate 67 01/17/25 13:30 Respiratory Rate 20 01/17/25 13:30 Blood Pressure 125/58 L 01/17/25 13:30 Pulse Oximetry 97 01/17/25 15:07 Oxygen Delivery Room Air 01/17/25 15:07 Lab Data Lab results reviewed: Yes I reviewed the patient's lab results. 01/17/25 10:43 01/17/25 10:43 Labs: Lab Results 01/17/25 01/17/25 01/17/25 Range/Units 10:36 10:43 11:03 WBC 6.6 (4.5-10.0) K/mm3 RBC 4.71 (4.2-5.4) M/mm3 Hgb 13.8 (12.0-15.0) g/dL Hct 42.2 (37.0-47.0) % MCV 89.6 (80-100) fl MCH 29.3 (26-34) pg MCHC 32.7 (32-36) g/dl RDW 14.3 (11.5-14.5) % Plt Count 268 (150-375) k/mm3 MPV 10.2 (7.4-10.4) fl Immature Gran % (Auto) 0.6 H (0-0.5) % Neut % (Auto) 65.0 (45.5-73.1) % Lymph % (Auto) 24.6 (18.3-44.2) % [place] % (Auto) 9.0 H (2.6-8.5) % Eos % (Auto) 0.3 (0-4.4) % Baso % (Auto) 0.5 (0.2-1.2) % Lymph # (Auto) 1.62 (0.9-3.2) K/mm3 [place] # (Auto) 0.6 (0.1-0.6) K/mm3 Eos # (Auto) 0.0 (0-0.3) K/mm3 Baso # (Auto) 0.0 (0.0-0.1) K/mm3 Abs Immat Gran (auto) 0.04 H (0.00-0.031) K/mm3 Absolute Neuts (auto) 4.3 (1.3-6.7) K/mm3 Absolute Nucleated RBC 0.000 (0.0-0.012) K/mm3 Nucleated RBC % 0.0 (0.0-0.2) % PT 13.8 (11.1-14.7) Seconds INR 1.0 APTT 31.4 (22.3-36.8) Seconds Sodium 138 (137-145) mmol/L Potassium 4.9 (3.4-5.0) mmol/L Chloride 102 (98-107) mmol/L Carbon Dioxide 27 (22-30) mmol/L Anion Gap 9 (4-12) mmol/L BUN 25 H (7-17) mg/dL Creatinine 0.98 (0.7-1.0) mg/dL Estim Creat Clear Calc Not Reportable Estimated GFR 54 L (59 - ) Glucose 113 H (65-110) mg/dL POC Capillary Glucose 119 H (65-105) mg/dl Lactic Acid 1.5 (0.7-2.0) mmol/L Calcium 9.8 (8.4-10.2) mg/dL Total Bilirubin 0.6 (0.2-1.3) mg/dL AST 28 (14-36) U/L ALT 16 (6-35) U/L Alkaline Phosphatase 67 (38-126) U/L Total Protein 7.3 (6.3-8.2) g/dL Albumin 4.2 (3.5-5.1) g/dL Urine Color Yellow (Yellow) Urine Appearance Turbid H (Clear) Urine pH 7.0 (5.0-9.0) Ur Specific Alligator 1.008 (1.001-1.035) Urine Protein Trace (Negative) mg/dL Urine Glucose (UA) Negative (Negative) mg/dL Urine Ketones Negative (Negative) mg/dL Ur Blood (Man) 1+ H (Negative) Urine Nitrate Positive H (Negative) Urine Bilirubin Negative (Negative) Urine Urobilinogen 0.2 (<2.0) mg/dL Add Ur Microanalysis Reviewed Leukocyte Esterase Rfl 3+ H (Negative) HOMAR/UL Urine RBC 0-2 (0-2) /hpf Urine WBC >100 H (0-3) /hpf Ur Squamous Epith Cells None seen (Few) /hpf Urine Bacteria 4+ H /hpf Urine Casts 6-10 Imaging Data Radiologist's impression: Impressions Head CT 01/17/25 10:59 Impression: No intracranial hemorrhage, mass, or acute infarct. Mild generalized atrophy. Discharge Plan Discharge Clinical Impression: Prolapse of vaginal mckay Altered mental status Qualifiers: Altered mental status type: disorientation Qualified Code(s): R41.0 - Disorientation, unspecified Urinary tract infection Qualifiers: Urinary tract infection type: acute cystitis Hematuria presence: without hematuria Qualified Code(s): N30.00 - Acute cystitis without hematuria Patient Disposition: Still a Patient Condition: Stable
[2025-01-17 10:54] LABS: Hematocrit 42.2 % (37.0-47.0); Hemoglobin 13.8 g/dL (12.0-15.0); Immature Granulocyte Percent A 0.6 % (0-0.5); Lymphocytes Absolute Auto 1.62 K/mm3 (0.9-3.2); Mean Corpuscular HGB Conc 32.7 g/dl (32-36); Mean Corpuscular Hemoglobin 29.3 pg (26-34); Mean Corpuscular Volume 89.6 fl (80-100); Nucleated Red Blood Cells Absolute Auto 0.000 K/mm3 (0.0-0.012); Nucleated Red Blood Cells Perc 0.0 % (0.0-0.2); Platelet Count Result 268 k/mm3 (150-375); Red Blood Count 4.71 M/mm3 (4.2-5.4); White Blood Count 6.6 K/mm3 (4.5-10.0)
[2025-01-17 11:06] LABS: INR 1.0; Partial Thromboplastin Time 31.4 Seconds (22.3-36.8); Prothrombin Time 13.8 Seconds (11.1-14.7)
[2025-01-17 11:13] LABS: Alanine Aminotransferase 16 U/L (6-35); Albumin Level 4.2 g/dL (3.5-5.1); Alkaline Phosphatase 67 U/L (38-126); Anion Gap 9 mmol/L (4-12); Aspartate Amino Transferase 28 U/L (14-36); Bilirubin,Total 0.6 mg/dL (0.2-1.3); Blood Urea Nitrogen 25 mg/dL (7-17); Calcium 9.8 mg/dL (8.4-10.2); Carbon Dioxide 27 mmol/L (22-30); Chloride 102 mmol/L (98-107); Estimated Glomerular Filt Rate 54; Glucose 113 mg/dL (65-110); Potassium 4.9 mmol/L (3.4-5.0); Sodium 138 mmol/L (137-145); Total Protein 7.3 g/dL (6.3-8.2)
[2025-01-17 11:40] LABS: Add Urine Microscopic? YES; Appearance Urine Turbid (Clear); Glucose Urine UA Negative (Negative); Leukocyte Esterase Ur 3+ LEU/UL (Negative); Need Manual Microscopic Reviewed; Nitrate Urine Positive (Negative); Specific Grav Ur 1.008 (1.001-1.035)
[2025-01-17] MEDS: cefTRIAXone 1 GM in SODIUM CHLORIDE 0.9% IV 50 ML 100 ML IVPB (12:42)
--- NOTE | 2025-01-17 12:45 | P.HP_ITS ---
H&P: HPI History of Present Illness Date/Time: 01/17/25 12:45 Chief Complaint: AMS Narrative: 89 y/o F with PMH of vaginal prolapse, rectal prolapse, hyperlipidemia, and hypertension presents here with AMS. The patient presents here from [facility] via EMS for further evaluation of altered mental status. Per correction staff reported to EMS, the patient had been complaining there was something in her vagina this morning. She had also become aggressive with the correction staff starting this morning. Her baseline orientation is A&O times 3-4. She is independent and takes her own medication at the facility at baseline. Per patient's daughter she has been hallucinating today. She has had a UTI before that caused hallucinations. No complaints made to her from the patient over the last few days. Recently seen by her [employer] Operations Technical Director provider for her vaginal and rectal prolapse and she is awaiting her appt with the specialist. The patient currently denies any fever, chills, body aches dysuria, abdominal pain, hallucinations, confusion, hematuria, or urinary frequency. Patient does endorse urinary hesitancy. She otherwise states she is in her normal state health. Initial VS at presentation: 97.5? F, HR 87, R 15, 145/80, and 97% on RA. ED workup showed: No leukocytosis, no anemia, normal coags, no significant electrolyte derangements, creatinine 0.98 and GFR 54, glucose 113, and UA co nsistent with UTI. Head CT showed no intracranial hemorrhage/mass/acute infarct and mild generalized atrophy. Review of Systems Review of Systems: All systems reviewed & are unremarkable except as noted in HPI and below (Limited due to mild disorientation) [facility] Past Medical History Medical History GERD (gastroesophageal reflux disease) Rectal prolapse Vaginal prolapse Hyperlipidemia Hypertension Surgical History Surgical History History of partial hysterectomy H/O hernia repair Hx of tonsillectomy Social History Social History Smoking status: Never smoker Alcohol intake: never Substance use: never Occupation/Education: retired Gender identity (if verbalized by the patient): Female Spiritual care concerns: No Meds Home Medications and Allergies Home Medications ?Medication ?Instructions ?Recorded ?Confirmed ?Type docusate sodium 100 mg capsule 100 mg PO DAILY 01/17/25 01/17/25 History omeprazole 20 mg capsule,delayed 20 mg PO DAILY 01/17/25 01/17/25 History release spironolactone 50 mg tablet 50 mg PO DAILY 01/17/25 01/17/25 History Allergies Allergy/AdvReac Type Severity Reaction Status Date / Time No Known Allergies Allergy Mild Verified 03/16/20 19:04 Vital Signs Vital Signs - 24 hr 01/17/25 10:20 01/17/25 10:31 01/17/25 11:15 Temperature 97.5 F L Pulse Rate 87 88 83 Respiratory Rate 15 12 18 Blood Pressure 145/80 H Pulse Oximetry 97 99 98 Oxygen Delivery Room Air 01/17/25 11:29 01/17/25 12:01 Temperature Pulse Rate 76 Respiratory Rate 20 Blood Pressure 124/77 Pulse Oximetry 100 Oxygen Delivery Room Air Exam Const: General: comfortable and no acute distress Other: , female, elderly, nontoxic appearance HENMT: Face/Nose/Sinus: Normal nares present Mouth: Yes dry mucous membranes Eyes: General: appearance normal, both eyes and all related structures Sclera: sclerae normal Pupils: Equal, round and reactive pupils present EOM: EOMs intact bilaterally Resp: Effort & Inspection: normal respiratory effort Auscultation: clear to auscultation bilaterally Cardio: Rate: regular rate Rhythm: regular rhythm Other: S1-S2 present without murmur, rub, ectopy GI: Other: Mild suprapubic tenderness present. Otherwise normal exam: Abdomen soft, nondistended, nontender. Normoactive bowel sounds in all quadrants. Skin: General skin exam: normal color and no rashes or lesions noted Wounds: no wounds Neuro: Speech: normal speech Motor exam (neuro): 5/5 motor strength present throughout Sensory Exam: normal sensation Other: A/Ox self and place. Currently not orientated to time, baseline for patient. Unable to provide situational history which is not typical for her. Extrem: General: normal to inspection Psych: Mental Status: mental status grossly normal Affect: normal affect Other: Fair to poor insight and judgment at present, pleasant. H&P: Results Labs Labs: Short CBC 01/17/25 Range/Units 10:43 WBC 6.6 (4.5-10.0) K/mm3 Hgb 13.8 (12.0-15.0) g/dL Hct 42.2 (37.0-47.0) % Plt Count 268 (150-375) k/mm3 BMP 01/17/25 10:43 Sodium 138 Potassium 4.9 Chloride 102 Carbon Dioxide 27 BUN 25 H Creatinine 0.98 Glucose 113 H Calcium 9.8 Liver Function 01/17/25 Range/Units 10:43 Total Bilirubin 0.6 (0.2-1.3) mg/dL AST 28 (14-36) U/L ALT 16 (6-35) U/L Alkaline Phosphatase 67 (38-126) U/L Albumin 4.2 (3.5-5.1) g/dL Urine 01/17/25 Range/Units 11:03 Urine Color Yellow (Yellow) Urine Appearance Turbid H (Clear) Urine pH 7.0 (5.0-9.0) Ur Specific [place] 1.008 (1.001-1.035) Urine Protein Trace (Negative) mg/dL Urine Glucose (UA) Negative (Negative) mg/dL Assessment and Plan Assessment and plan (1) Altered mental status: Qualifiers: Altered mental status type: disorientation Qualified Code(s): R41.0 - Disorientation, unspecified Code(s): R41.82 - Altered mental status, unspecified Status: Acute Assessment and Plan: - Head CT, 01/17: No intracranial hemorrhage, mass, or acute infarct. Mild generalized atrophy. - +hallucinations, increased agitation starting day of evluation (01/17). Found to have a UTI, history of hallucinations with previous urinary tract infection. No focal deficits on exam. High suspicion for acute encephalopathy secondary to infection. Monitor mental status. (2) Urinary tract infection: Qualifiers: Hematuria presence: without hematuria Urinary tract infection type: acute cystitis Qualified Code(s): N30.00 - Acute cystitis without hematuria Code(s): N39.0 - Urinary tract infection, site not specified Status: Acute Assessment and Plan: - UA: Turbid, 1+ blood, positive nitrates, 3+ leuks, greater than 100 WBC, 4+ bacteria with no epithelial cells - UC pending, folow - no previous resistances noted per micro review - started on Ceftriaxone on 01/17 - IV fluids: LR at 100 mL/hr x1L - supportive care (3) Hypertension: Qualifiers: Hypertension type: primary hypertension Qualified Code(s): I10 - Essential (primary) hypertension Code(s): I10 - Essential (primary) hypertension Status: Chronic Assessment and Plan: - chronic, currently 125/58 - continue home medications: Spironolactone - monitor Plan Diet: Heart healthy GI Prophylaxis: N/a DVT Prophylaxis: SCDs IV fluids: LR at 100 mL/hour Lines/Tubes: Peripheral IV Code Status: Full code Quality VTE Prophylaxis VTE prophylaxis: mechanical ordered Hospitalist MIPS Advance Care Plan I have confirmed that the patient's Advanced Care Plan is present, code status is documented, or surrogate decision maker is listed in patient medical record.: Yes Medication Reconciliation I have utilized all available resources to obtain, update and review the patients current medications (includes all prescriptions, OTC, herbals, cannabis, and nutritional supplements).: Yes
[2025-01-17] MEDS: ACETAMINOPHEN 325 MG TABLET 650 MG PO (14:36)
[2025-01-17] MEDS: DOCUSATE SODIUM 100 MG CAPSULE PO (14:37)
[2025-01-17] MEDS: LACTATED RINGERS 1,000 ML 100 ML IV CONT (14:52)
[2025-01-18 04:30] VITALS: BP 140/80; PULSE 68; RESP 18; TEMP 36.3; O2SAT 99
[2025-01-18 06:08] LABS: Hematocrit 43.0 % (37.0-47.0); Hemoglobin 13.3 g/dL (12.0-15.0); Immature Granulocyte Percent A 0.3 % (0-0.5); Lymphocytes Absolute Auto 1.38 K/mm3 (0.9-3.2); Mean Corpuscular HGB Conc 30.9 g/dl (32-36); Mean Corpuscular Hemoglobin 28.7 pg (26-34); Mean Corpuscular Volume 92.7 fl (80-100); Nucleated Red Blood Cells Absolute Auto 0.000 K/mm3 (0.0-0.012); Nucleated Red Blood Cells Perc 0.0 % (0.0-0.2); Platelet Count Result 240 k/mm3 (150-375); Red Blood Count 4.64 M/mm3 (4.2-5.4); White Blood Count 6.2 K/mm3 (4.5-10.0)
[2025-01-18 06:37] LABS: Anion Gap 7 mmol/L (4-12); Blood Urea Nitrogen 14 mg/dL (7-17); Calcium 9.2 mg/dL (8.4-10.2); Carbon Dioxide 25 mmol/L (22-30); Chloride 108 mmol/L (98-107); Estimated CRCL calculation 40 ml/min; Estimated Glomerular Filt Rate > 60; Glucose 86 mg/dL (65-110); Potassium 4.1 mmol/L (3.4-5.0); Sodium 140 mmol/L (137-145)
--- NOTE | 2025-01-18 07:11 | P.PNIM_ITS ---
Progress Note: A&P Assessment and Plan (1) Altered mental status: Qualifiers: Altered mental status type: disorientation Qualified Code(s): R41.0 - Disorientation, unspecified Code(s): R41.82 - Altered mental status, unspecified Status: Acute Assessment and Plan: * Head CT, 01/17: * No intracranial hemorrhage, mass, or acute infarct. * Mild generalized atrophy. * +hallucinations, increased agitation starting day of evluation (01/17). Found to have a UTI, history of hallucinations with previous urinary tract infection. No focal deficits on exam. High suspicion for acute encephalopathy secondary to infection. Monitor mental status. * UA: Turbid, 1+ blood, positive nitrates, 3+ leuks, greater than 100 WBC, 4+ bacteria with no epithelial cells * WBC: wnl (2) Urinary tract infection: Qualifiers: Hematuria presence: without hematuria Urinary tract infection type: acute cystitis Qualified Code(s): N30.00 - Acute cystitis without hematuria Code(s): N39.0 - Urinary tract infection, site not specified Status: Acute Assessment and Plan: * UA: Turbid, 1+ blood, positive nitrates, 3+ leuks, greater than 100 WBC, 4+ bacteria with no epithelial cells * UC pending, folow * no previous resistances noted per micro review * started on Ceftriaxone on 01/17 * IV fluids: LR at 100 mL/hr x1L * supportive care (3) Hypertension: Qualifiers: Hypertension type: primary hypertension Qualified Code(s): I10 - Essential (primary) hypertension Code(s): I10 - Essential (primary) hypertension Status: Chronic Assessment and Plan: * chronic, currently 125/58 * continue home medications: Spironolactone * monitor (4) Prolapse of vaginal mckay: Code(s): N81.10 - Cystocele, unspecified Status: Acute Assessment and Plan: * Called EMS due to issues with Vaginal prolapse, unsure if previous diagnosis * OBGYN consult, appreciate further recommendations Plan Diet: Heart healthy GI Prophylaxis: N/a DVT Prophylaxis: SCDs IV fluids: LR at 100 mL/hour Lines/Tubes: Peripheral IV Code Status: Full code Subjective Date/time seen: 01/18/25 07:11 Interval history: 9 y/o F with PMH of vaginal prolapse, rectal prolapse, hyperlipidemia, and hypertension presents here with AMS. The patient presents here from [facility] via EMS for further evaluation of altered mental status. 01/18/2025 Patient sitting comfortably in bed at time of examination. A&Ox 2, however she did say it was summer time and thought it was either November or December. Denies any chest pain, shortness a breath, nausea/vomiting or abdominal pain. Remains afebrile, no leukocytosis. CBC/CMP unremarkable. Head CT negative for any acute findings. Urine culture still pending. Will obtain OBGYN consult regarding vaginal prolapse. Pt otherwise stable and has no complaints. Review of Systems Review of Systems: All systems reviewed & are unremarkable except as noted in HPI and below (Limited due to mild disorientation) Exam Narrative: A/Ox self and place. Not typically orientated to time. Unable to provide situational history which is not typical for her. Const: General: comfortable and no acute distress Other: , female, elderly, nontoxic appearance HENMT: Face/Nose/Sinus: Normal nares present Mouth: Yes dry mucous membranes Eyes: General: appearance normal, both eyes and all related structures Sclera: sclerae normal Pupils: Equal, round and reactive pupils present EOM: EOMs intact bilaterally Resp: Effort & Inspection: normal respiratory effort Auscultation: clear to auscultation bilaterally Cardio: Rate: regular rate Rhythm: regular rhythm Other: S1-S2 present without murmur, rub, ectopy GI: Other: Mild suprapubic tenderness present. Otherwise normal exam: Abdomen soft, nondistended, nontender. Normoactive bowel sounds in all quadrants. Skin: General skin exam: normal color and no rashes or lesions noted Wounds: no wounds Neuro: Cranial nerves: Yes Equal, round and reactive pupils present Speech: normal speech Motor exam (neuro): 5/5 motor strength present throughout S ensory Exam: normal sensation Other: A/Ox self and place. Currently not orientated to time, can tell me that it is summer time. baseline for patient. Able to tell me that she is in the hospital because she was feeling weak at home. Extrem: General: normal to inspection Psych: Mental Status: mental status grossly normal Affect: normal affect Other: Fair to poor insight and judgment at present, pleasant. Objective Data Vital Signs Vital Signs: Vital Signs - 24 hr 01/17/25 10:20 01/17/25 10:31 01/17/25 11:15 Temperature 97.5 F L Pulse Rate 87 88 83 Respiratory Rate 15 12 18 Blood Pressure 145/80 H Pulse Oximetry 97 99 98 Oxygen Delivery Room Air 01/17/25 11:29 01/17/25 12:01 01/17/25 12:45 Temperature Pulse Rate 76 70 Respiratory Rate 20 20 Blood Pressure 124/77 135/64 Pulse Oximetry 100 100 Oxygen Delivery Room Air 01/17/25 13:30 01/17/25 15:07 01/17/25 19:40 Temperature 98.1 F 97.1 F L Pulse Rate 67 64 Respiratory Rate 20 20 Blood Pressure 125/58 L 139/73 Pulse Oximetry 97 97 96 Oxygen Delivery Room Air 01/17/25 20:00 01/18/25 04:30 Temperature 97.3 F L Pulse Rate 68 Respiratory Rate 18 Blood Pressure 140/80 Pulse Oximetry 99 Oxygen Delivery Room Air Intake/Output Intake/Output: Intake & Output 01/15/25 01/16/25 01/17/25 01/18/25 23:59 23:59 23:59 23:59 Intake Total 240 100 Output Total 100 Balance 140 100 Meds/Results Medications: Active Medications Generic Name Dose Route Start Last Admin Trade Name Freq PRN Reason Stop Dose Admin Acetaminophen 650 mg 01/17/25 14:13 01/17/25 14:36 Acetaminophen 325 Mg Tablet PO 650 mg Q6H PRN Administration Mild Pain (1-3) or Fever Docusate Sodium 100 mg 01/17/25 13:10 01/17/25 14:37 Docusate Sodium 100 Mg Capsule PO 100 mg DAILY [facility] Administration Ceftriaxone Sodium 1 gm/ 50 mls @ 100 mls/hr 01/18/25 12:00 Sodium Chloride IVPB Q24H [facility] Ondansetron HCl 4 mg 01/17/25 14:13 Ondansetron Hcl Odt 4 Mg Tablet PO Q6H PRN Nausea And Vomiting Pantoprazole Sodium 40 mg 01/18/25 09:00 Pantoprazole 40 Mg Tablet PO QAM [facility]ERARDO Polyethylene Glycol 17 gm 01/17/25 14:13 Polyethylene Glycol 3350 17 Gm Powd.Pack PO QAM PRN Constipation Spironolactone 50 mg 01/18/25 09:00 Spironolactone 50 Mg Tablet PO DAILY [facility] Radiology Results: ITS Impressions Head CT 01/17/25 10:59 Impression: No intracranial hemorrhage, mass, or acute infarct. Mild generalized atrophy. Labs Labs: Laboratory Results - last 24 hr 01/17/25 01/17/25 01/17/25 10:36 10:43 11:03 WBC 6.6 RBC 4.71 Hgb 13.8 Hct 42.2 MCV 89.6 MCH 29.3 MCHC 32.7 RDW 14.3 Plt Count 268 MPV 10.2 Immature Gran % (Auto) 0.6 H Neut % (Auto) 65.0 Lymph % (Auto) 24.6 [place] % (Auto) 9.0 H Eos % (Auto) 0.3 Baso % (Auto) 0.5 Lymph # (Auto) 1.62 [place] # (Auto) 0.6 Eos # (Auto) 0.0 Baso # (Auto) 0.0 Abs Immat Gran (auto) 0.04 H Absolute Neuts (auto) 4.3 Absolute Nucleated RBC 0.000 Nucleated RBC % 0.0 PT 13.8 INR 1.0 APTT 31.4 Sodium 138 Potassium 4.9 Chloride 102 Carbon Dioxide 27 Anion Gap 9 BUN 25 H Creatinine 0.98 Estim Creat Clear Calc Not Reportable Estimated GFR 54 L Glucose 113 H POC Capillary Glucose 119 H Lactic Acid 1.5 Calcium 9.8 Total Bilirubin 0.6 AST 28 ALT 16 Alkaline Phosphatase 67 Total Protein 7.3 Albumin 4.2 Urine Color Yellow Urine Appearance Turbid H Urine pH 7.0 Ur Specific [place] 1.008 Urine Protein Trace Urine Glucose (UA) Negative Urine Ketones Negative Ur Blood (Man) 1+ H Urine Nitrate Positive H Urine Bilirubin Negative Urine Urobilinogen 0.2 Add Ur Microanalysis Reviewed Leukocyte Esterase Rfl 3+ H Urine RBC 0-2 Urine WBC >100 H Ur Squamous Epith Cells None seen Urine Bacteria 4+ H Urine Casts 6-10 01/18/25 05:51 WBC 6.2 RBC 4.64 Hgb 13.3 Hct 43.0 MCV 92.7 MCH 28.7 MCHC 30.9 L RDW 14.4 Plt Count 240 MPV 10.0 Immature Gran % (Auto) 0.3 Neut % (Auto) 66.3 Lymph % (Auto) 22.4 [place] % (Auto) 9.6 H Eos % (Auto) 0.6 Baso % (Auto) 0.8 Lymph # (Auto) 1.38 [place] # (Auto) 0.6 Eos # (Auto) 0.0 Baso # (Auto) 0.1 Abs Immat Gran (auto) 0.02 Absolute Neuts (auto) 4.1 Absolute Nucleated RBC 0.000 Nucleated RBC % 0.0 PT INR APTT Sodium 140 Potassium 4.1 Chloride 108 H Carbon Dioxide 25 Anion Gap 7 BUN 14 D Creatinine 0.70 Estim Creat Clear Calc 40 Estimated GFR > 60 Glucose 86 POC Capillary Glucose Lactic Acid Calcium 9.2 Total Bilirubin AST ALT Alkaline Phosphatase Total Protein Albumin Urine Color Urine Appearance Urine pH Ur Specific [place] Urine Protein Urine Glucose (UA) Urine Ketones Ur Blood (Man) Urine Nitrate Urine Bilirubin Urine Urobilinogen Add Ur Microanalysis Leukocyte Esterase Rfl Urine RBC Urine WBC Ur Squamous Epith Cells Urine Bacteria Urine Casts Quality VTE Prophylaxis VTE prophylaxis: mechanical ordered
[2025-01-18] MEDS: SPIRONOLACTONE 50 MG TABLET PO (08:26)
[2025-01-18] MEDS: DOCUSATE SODIUM 100 MG CAPSULE PO (08:26)
[2025-01-18] MEDS: PANTOPRAZOLE 40 MG TABLET PO (08:26)
[2025-01-18 11:26] VITALS: BMI 26.5
[2025-01-18] MEDS: ACETAMINOPHEN 325 MG TABLET 650 MG PO ×2 (11:29→19:58)
[2025-01-18] MEDS: cefTRIAXone 1 GM in SODIUM CHLORIDE 0.9% IV 50 ML 100 ML IVPB (12:10)
[2025-01-18 13:49] VITALS: BP 117/60; PULSE 75; RESP 18; TEMP 36.4; O2SAT 95
--- NOTE | 2025-01-18 15:52 | PCOTNOTE ---
Attempted to see pt however pt reports too much pelvic pain and that it is getting worse and not better and declines attempting to get up at this time. RN notified.
[2025-01-18 20:15] VITALS: BP 142/62; PULSE 66; RESP 20; TEMP 36.7; O2SAT 98
[2025-01-19 05:00] VITALS: BP 148/78; PULSE 80; RESP 20; TEMP 35.5; O2SAT 98
[2025-01-19] MEDS: ACETAMINOPHEN 325 MG TABLET 650 MG PO ×2 (05:33→23:34)
--- NOTE | 2025-01-19 07:27 | P.CONS_ITS ---
Assessment and Plan Assessment and plan (1) Urinary tract infection: Qualifiers: Hematuria presence: without hematuria Urinary tract infection type: a cute cystitis Qualified Code(s): N30.00 - Acute cystitis without hematuria Code(s): N39.0 - Urinary tract infection, site not specified Status: Acute Assessment and Plan: 89-year-old female who is admitted for altered mental status and found to have UTI Currently on Rocephin Patient still has altered mental status Patient is a poor historian (2) Altered mental status: Qualifiers: Altered mental status type: disorientation Qualified Code(s): R41.0 - Disorientation, unspecified Code(s): R41.82 - Altered mental status, unspecified Status: Acute (3) Prolapse of female pelvic organs: Code(s): N81.9 - Female genital prolapse, unspecified Status: Acute Assessment and Plan: Consult for possible pelvic organ prolapse Nurses noted protruding pelvic organ prolapse during catheterization No prolapse noted on initial exam Full speculum exam not performed during this hospitalization Recommend follow-up outpatient after resolution of UTI Will consider vaginal pessary for correction of any pelvic organ prolapse and to help prevent urinary retention Appreciate consultation, will plan to follow-up with patient outpatient HPI Data of Consult Date/Time: 01/19/25 07:27 Requesting Physician: Crissy Rojas MD Primary Care Provider: Nicole Youssef, DO Consult Narrative Reason for consult: Pelvic organ prolapse Narrative: Arlette Franklin is a 89 year old female admitted for altered mental status and found to have a urinary tract infection. Patient has had similar presentation due to UTIs in the past. Patient is a poor historian due to altered mental status. There is no family members or support system at the bedside this morning. Nursing noted pelvic organ prolapse during catheterization. Review of Systems 2 Review of Systems: ROS unobtainable: Yes unobtainable due to mental status PMFSH Past Medical History Medical History GERD (gastroesophageal reflux disease) Rectal prolapse Vaginal prolapse Hyperlipidemia Hypertension Surgical History Surgical History History of partial hysterectomy H/O hernia repair Hx of tonsillectomy Social History Social History Smoking status: Never smoker Alcohol intake: never Substance use: never Occupation/Education: retired Gender identity (if verbalized by the patient): Female Spiritual care concerns: No Meds Home Medications and Allergies Home Medications ?Medication ?Instructions ?Recorded ?Confirmed ?Type docusate sodium 100 mg capsule 100 mg PO DAILY 01/17/25 01/17/25 History omeprazole 20 mg capsule,delayed 20 mg PO DAILY 01/17/25 01/17/25 History release spironolactone 50 mg tablet 50 mg PO DAILY 01/17/25 01/17/25 History Allergies Allergy/AdvReac Type Severity Reaction Status Date / Time No Known Allergies Allergy Mild Verified 03/16/20 19:04 Vital Signs Vital Signs - 24 hr 01/18/25 08:30 01/18/25 13:49 01/18/25 14:00 Temperature 97.6 F Pulse Rate 75 Respiratory Rate 18 Blood Pressure 117/60 Pulse Oximetry 95 Oxygen Delivery Room Air Room Air 01/18/25 20:15 01/19/25 05:00 Temperature 98.0 F 96 F L Pulse Rate 66 80 Respiratory Rate 20 20 Blood Pressure 142/62 H 148/78 H Pulse Oximetry 98 98 Oxygen Delivery Exam 2 Const: General: no acute distress Nutritional Appearance: average body habitus Resp: Effort & Inspection: normal respiratory effort and able to speak in complete sentences Cardio: Rate: regular rate GI: GI Palp: No abdominal tenderness and Yes Soft to palpation : External Female Exam: normal external appearance Other: No appreciable prolapse noted on external exam. Internal exam not performed during this hospitalization Results Labs 01/18/25 05:51 01/18/25 05:51
--- NOTE | 2025-01-19 07:49 | P.PNIM_ITS ---
Progress Note: A&P Assessment and Plan (1) Altered mental status: Qualifiers: Altered mental status type: disorientation Qualified Code(s): R41.0 - Disorientation, unspecified Code(s): R41.82 - Altered mental status, unspecified Status: Acute Assessment and Plan: * Head CT, 01/17: * No intracranial hemorrhage, mass, or acute infarct. * Mild generalized atrophy. * +hallucinations, increased agitation starting day of evluation (01/17). Found to have a UTI, history of hallucinations with previous urinary tract infection. No focal deficits on exam. High suspicion for acute encephalopathy secondary to infection. Monitor mental status. * UA: Turbid, 1+ blood, positive nitrates, 3+ leuks, greater than 100 WBC, 4+ bacteria with no epithelial cells * WBC: wnl * 01/19: Remains A&O x2 which is abnormal for her * Brain MRI pending * EKG pending * Blood cultures pending (2) Urinary tract infection: Qualifiers: Hematuria presence: without hematuria Urinary tract infection type: acute cystitis Qualified Code(s): N30.00 - Acute cystitis without hematuria Code(s): N39.0 - Urinary tract infection, site not specified Status: Acute Assessment and Plan: * UA: Turbid, 1+ blood, positive nitrates, 3+ leuks, greater than 100 WBC, 4+ bacteria with no epithelial cells * UC pending * no previous resistances noted per micro review * started on Ceftriaxone on 01/17 * IV fluids: LR at 100 mL/hr x1L * supportive care (3) Hypertension: Qualifiers: Hypertension type: primary hypertension Qualified Code(s): I10 - Essential (primary) hypertension Code(s): I10 - Essential (primary) hypertension Status: Chronic Assessment and Plan: * chronic, currently 125/58 * continue home medications: Spironolactone * monitor (4) Prolapse of vaginal mckay: Code(s): N81.10 - Cystocele, unspecified Status: Acute Assessment and Plan: * Called EMS due to issues with Vaginal prolapse, unsure if previous diagnosis * OBGYN consult, appreciate further recommendations * No prolapse noted on initial exam * Recommend follow-up in the outpatient setting after resolution of UTI * Consider vaginal pessary Plan Diet: Heart healthy GI Prophylaxis: N/a DVT Prophylaxis: SCDs IV fluids: LR at 100 mL/hour Lines/Tubes: Peripheral IV Code Status: Full code Subjective Date/time seen: 01/19/25 07:49 Interval history: 9 y/o F with PMH of vaginal prolapse, rectal prolapse, hyperlipidemia, and hypertension presents here with AMS. The patient presents here from [facility] via EMS for further evaluation of altered mental status. 01/19/2025 Patient sitting comfortably in bed at time of examination. Still remains A&Ox2, thinks that the bankruptcy paralegal is her neighbor and doesn't keep track of what year it is but knows her name, date of , and who the president is. OBGYN consulted regarding vaginal prolapse -recommends follow-up in the outpatient setting after resolution of urinary tract infection. Urine culture still pending at this time. Will order an MRI of the brain for AMS. Review of Systems Review of Systems: All systems reviewed & are unremarkable except as noted in HPI and below (Limited due to mild disorientation) Exam Narrative: A/Ox self and place. Not typically orientated to time. Unable to provide situational history which is not typical for her. Const: General: comfortable and no acute distress Other: , female, elderly, nontoxic appearance HENMT: Face/Nose/Sinus: Normal nares present Mouth: Yes dry mucous membranes Eyes: General: appearance normal, both eyes and all related structures Sclera: sclerae normal Pupils: Equal, round and reactive pupils present EOM: EOMs intact bilaterally Resp: Effort & Inspection: normal respiratory effort Auscultation: clear to auscultation bilaterally Cardio: Rate: regular rate Rhythm: regular rhythm Other: S1-S2 present without murmur, rub, ectopy GI: Other: Mild suprapubic tenderness present. Otherwise normal exam: Abdomen soft, nondistended, nontender. Normoactive bowel sounds in all quadrants. Skin: General skin exam: normal color and no rashes or lesions noted Wounds: no wounds Neuro: Cranial nerves: Yes Equal, round and reactive pupils present Speech: normal speech Motor exam (neuro): 5/5 motor strength present throughout Sensory Exam: normal sensation Other: A/Ox self and place. Currently not orientated to time, can tell me that it is summer time. baseline for patient. Able to tell me that she is in the hospital because she was feeling weak at home. Extrem: General: normal to inspection Psych: Mental Status: mental status grossly normal Affect: normal affect Other: Fair to poor insight and judgment at present, pleasant. Objective Data Vital Signs Vital Signs: Vital Signs - 24 hr 01/18/25 08:30 01/18/25 13:49 01/18/25 14:00 Temperature 97.6 F Pulse Rate 75 Respiratory Rate 18 Blood Pressure 117/60 Pulse Oximetry 95 Oxygen Delivery Room Air Room Air 01/18/25 20:15 01/19/25 05:00 Temperature 98.0 F 96 F L Pulse Rate 66 80 Respiratory Rate 20 20 Blood Pressure 142/62 H 148/78 H Pulse Oximetry 98 98 Oxygen Delivery Intake/Output Intake/Output: Intake & Output 01/16/25 01/17/25 01/18/25 01/19/25 23:59 23:59 23:59 23:59 Intake Total 240 1532 1144 Output Total 100 551 Balance 595 390 0952 Meds/Results Medications: Active Medications Generic Name Dose Route Start Last Admin Trade Name Freq PRN Reason Stop Dose Admin Acetaminophen 650 mg 01/17/25 14:13 01/19/25 05:33 Acetaminophen 325 Mg Tablet PO 650 mg Q6H PRN Administration Mild Pain (1-3) or Fever Docusate Sodium 100 mg 01/17/25 13:10 01/18/25 08:26 Docusate Sodium 100 Mg Capsule PO 100 mg DAILY EVERARDO Administration Ceftriaxone Sodium 1 gm/ 50 mls @ 100 mls/hr 01/18/25 12:00 01/18/25 12:10 Sodium Chloride IVPB 100 mls/hr Q24H EVERARDO Administration Ondansetron HCl 4 mg 01/17/25 14:13 Ondansetron Hcl Odt 4 Mg Tablet PO Q6H PRN Nausea And Vomiting Pantoprazole Sodium 40 mg 01/18/25 09:00 01/18/25 08:26 Pantoprazole 40 Mg Tablet PO 40 mg QAM EVERARDO Administration Polyethylene Glycol 17 gm 01/17/25 14:13 Polyethylene Glycol 3350 17 Gm Powd.Pack PO QAM PRN Constipation Spironolactone 50 mg 01/18/25 09:00 01/18/25 08:26 Spironolactone 50 Mg Tablet PO 50 mg DAILY EVERARDO Administration Radiology Results: ITS Impressions Head CT 01/17/25 10:59 Impression: No intracranial hemorrhage, mass, or acute infarct. Mild generalized atrophy. Quality VTE Prophylaxis VTE prophylaxis: mechanical ordered
[2025-01-19] MEDS: PANTOPRAZOLE 40 MG TABLET PO (08:48)
[2025-01-19] MEDS: SPIRONOLACTONE 50 MG TABLET PO (08:48)
[2025-01-19] MEDS: DOCUSATE SODIUM 100 MG CAPSULE PO (08:48)
[2025-01-19 08:57] LABS: Hematocrit 46.1 % (37.0-47.0); Hemoglobin 14.8 g/dL (12.0-15.0); Immature Granulocyte Percent A 0.4 % (0-0.5); Lymphocytes Absolute Auto 1.22 K/mm3 (0.9-3.2); Mean Corpuscular HGB Conc 32.1 g/dl (32-36); Mean Corpuscular Hemoglobin 28.8 pg (26-34); Mean Corpuscular Volume 89.7 fl (80-100); Nucleated Red Blood Cells Absolute Auto 0.000 K/mm3 (0.0-0.012); Nucleated Red Blood Cells Perc 0.0 % (0.0-0.2); Platelet Count Result 283 k/mm3 (150-375); Red Blood Count 5.14 M/mm3 (4.2-5.4); White Blood Count 8.5 K/mm3 (4.5-10.0)
[2025-01-19 09:30] LABS: Alanine Aminotransferase 18 U/L (6-35); Albumin Level 4.1 g/dL (3.5-5.1); Alkaline Phosphatase 66 U/L (38-126); Anion Gap 10 mmol/L (4-12); Aspartate Amino Transferase 30 U/L (14-36); Bilirubin,Total 0.5 mg/dL (0.2-1.3); Blood Urea Nitrogen 12 mg/dL (7-17); Calcium 9.7 mg/dL (8.4-10.2); Carbon Dioxide 26 mmol/L (22-30); Chloride 104 mmol/L (98-107); Estimated CRCL calculation 36 ml/min; Estimated Glomerular Filt Rate > 60; Glucose 107 mg/dL (65-110); Potassium 4.2 mmol/L (3.4-5.0); Sodium 140 mmol/L (137-145); Total Protein 7.4 g/dL (6.3-8.2)
[2025-01-19] MEDS: cefTRIAXone 1 GM in SODIUM CHLORIDE 0.9% IV 50 ML 100 ML IVPB (12:27)
--- NOTE | 2025-01-19 13:47 | ECG_ITS ---
Test Date: 2025-01-19 14:19:23 Measurements Intervals [place] Rate: 78 P: 37 [place]: 220 QRS: -4 QRSD: 78 T: 31 QT: 347 QTc: 397 Interpretive Statements SINUS RHYTHM WITH FIRST DEGREE AV BLOCK POSSIBLE ANTERIOR MYOCARDIAL INFARCTION , OF INDETERMINATE AGE [30 ms Q WAVE IN V3/V4, OR R < 0.2 mV IN V4] No previous ECG available for comparison Electronically Signed On 01-19-2025 17:08:01 CDT by Alon Aburto M.D.
[2025-01-19 14:00] VITALS: BP 137/66; PULSE 76; RESP 20; TEMP 36.6; O2SAT 97
[2025-01-19 23:09] VITALS: O2SAT 96
[2025-01-20] MEDS: ACETAMINOPHEN 325 MG TABLET 650 MG PO (04:57)
[2025-01-20 05:59] LABS: Hematocrit 44.7 % (37.0-47.0); Hemoglobin 14.0 g/dL (12.0-15.0); Immature Granulocyte Percent A 0.5 % (0-0.5); Lymphocytes Absolute Auto 1.80 K/mm3 (0.9-3.2); Mean Corpuscular HGB Conc 31.3 g/dl (32-36); Mean Corpuscular Hemoglobin 28.8 pg (26-34); Mean Corpuscular Volume 92.0 fl (80-100); Nucleated Red Blood Cells Absolute Auto 0.000 K/mm3 (0.0-0.012); Nucleated Red Blood Cells Perc 0.0 % (0.0-0.2); Platelet Count Result 270 k/mm3 (150-375); Red Blood Count 4.86 M/mm3 (4.2-5.4); White Blood Count 7.6 K/mm3 (4.5-10.0)
[2025-01-20 06:00] VITALS: BP 128/67; RESP 16; TEMP 36.4; O2SAT 99
[2025-01-20 06:31] LABS: Alanine Aminotransferase 14 U/L (6-35); Albumin Level 3.7 g/dL (3.5-5.1); Alkaline Phosphatase 64 U/L (38-126); Anion Gap 6 mmol/L (4-12); Aspartate Amino Transferase 29 U/L (14-36); Bilirubin,Total 0.6 mg/dL (0.2-1.3); Blood Urea Nitrogen 14 mg/dL (7-17); Calcium 9.3 mg/dL (8.4-10.2); Carbon Dioxide 25 mmol/L (22-30); Chloride 107 mmol/L (98-107); Estimated CRCL calculation 35 ml/min; Estimated Glomerular Filt Rate > 60; Glucose 89 mg/dL (65-110); Potassium 4.3 mmol/L (3.4-5.0); Sodium 138 mmol/L (137-145); Total Protein 6.5 g/dL (6.3-8.2)
[2025-01-20] MEDS: DOCUSATE SODIUM 100 MG CAPSULE PO (08:49)
[2025-01-20] MEDS: SPIRONOLACTONE 50 MG TABLET PO (08:49)
[2025-01-20] MEDS: PANTOPRAZOLE 40 MG TABLET PO (08:49)
[2025-01-20 08:50] LABS: Magnesium 2.0 mg/dL (1.6-2.3)
--- NOTE | 2025-01-20 10:26 | P.PNIM_ITS ---
Progress Note: A&P Assessment and Plan (1) Altered mental status: Qualifiers: Altered mental status type: disorientation Qualified Code(s): R41.0 - Disorientation, unspecified Code(s): R41.82 - Altered mental status, unspecified Status: Acute Assessment and Plan: * Head CT, 01/17: * No intracranial hemorrhage, mass, or acute infarct. * Mild generalized atrophy. * +hallucinations, increased agitation starting day of evluation (01/17). Found to have a UTI, history of hallucinations with previous urinary tract infection. No focal deficits on exam. High suspicion for acute encephalopathy secondary to infection. Monitor mental status. * UA: Turbid, 1+ blood, positive nitrates, 3+ leuks, greater than 100 WBC, 4+ bacteria with no epithelial cells * WBC: wnl * 01/19: Remains A&O x2 which is abnormal for her * Brain MRA pending * EKG SR 78 with first degree AV block. QTc 397. * Blood cultures no growth to date. (2) Urinary tract infection: Qualifiers: Hematuria presence: without hematuria Urinary tract infection type: acute cystitis Qualified Code(s): N30.00 - Acute cystitis without hematuria Code(s): N39.0 - Urinary tract infection, site not specified Status: Acute Assessment and Plan: * UA: Turbid, 1+ blood, positive nitrates, 3+ leuks, greater than 100 WBC, 4+ bacteria with no epithelial cells * UC growing gram negative bacilli, sensitivities pending. * no previous resistances noted per micro review * started on Ceftriaxone on 01/17 * IV fluids: LR at 100 mL/hr x1L * supportive care (3) Hypertension: Qualifiers: Hypertension type: primary hypertension Qualified Code(s): I10 - Essential (primary) hypertension Code(s): I10 - Essential (primary) hypertension Status: Chronic Assessment and Plan: * chronic, currently 138/61. * continue home medications: Spironolactone * monitor (4) Prolapse of vaginal mckay: Code(s): N81.10 - Cystocele, unspecified Status: Acute Assessment and Plan: * Called EMS due to issues with Vaginal prolapse, unsure if previous diagnosis * OBGYN consult, appreciate further recommendations * No prolapse noted on initial exam * Recommend follow-up in the outpatient setting after resolution of UTI * Consider vaginal pessary Plan Diet: Heart healthy GI Prophylaxis: N/a DVT Prophylaxis: SCDs IV fluids: LR at 100 mL/hour Lines/Tubes: Peripheral IV Code Status: Full code Subjective Date/time seen: 01/20/25 10:26 Interval history: Patient lying in bed. Patient denies chest pain, palpitations, headache, dizziness, nausea, vomiting, or burning with urination. Review of Systems Review of Systems: All systems reviewed & are unremarkable except as noted in HPI and below Exam Const: General: comfortable and no acute distress Eyes: Sclera: sclerae normal Resp: Effort & Inspection: normal respiratory effort Auscultation: clear to auscultation bilaterally Cardio: Rate: regular rate Rhythm: regular rhythm GI: GI Palp: Yes Soft to palpation Auscultation: normal bowel sounds Neuro: Speech: normal speech Extrem: General: no pedal edema Psych: Affect: normal affect Other: [place] to self and place. Fair to poor insight and judgment at present, pleasant. Objective Data Vital Signs Vital Signs: Vital Signs - 24 hr 01/19/25 14:00 01/19/25 23:09 01/20/25 06:00 Temperature 98 F 97.5 F L Pulse Rate 76 Respiratory Rate 20 16 Blood Pressure 137/66 128/67 Pulse Oximetry 97 96 99 Oxygen Delivery Room Air Fraction of Inspired Oxygen 21 Intake/Output Intake/Output: Intake & Output 01/17/25 01/18/25 01/19/25 01/20/25 23:59 23:59 23:59 23:59 Intake Total 240 1582 3884 220 Output Total 100 551 650 Balance 140 1031 3234 220 Meds/Results Medications: Active Medications Generic Name Dose Route Start Last Admin Trade Name Dagoq PRN Reason Stop Dose Admin Acetaminophen 650 mg 01/17/25 14:13 01/20/25 04:57 Acetaminophen 325 Mg Tablet PO 650 mg Q6H PRN Administration Mild Pain (1-3) or Fever Docusate Sodium 100 mg 01/17/25 13:10 01/20/25 08:49 Docusate Sodium 100 Mg Capsule PO 100 mg DAILY EVERARDO Administration Ceftriaxone Sodium 1 gm/ 50 mls @ 100 mls/hr 01/18/25 12:00 01/19/25 12:27 Sodium Chloride IVPB 100 mls/hr Q24H EVERARDO Administration Ondansetron HCl 4 mg 01/17/25 14:13 Ondansetron Hcl Odt 4 Mg Tablet PO Q6H PRN Nausea And Vomiting Pantoprazole Sodium 40 mg 01/18/25 09:00 01/20/25 08:49 Pantoprazole 40 Mg Tablet PO 40 mg QAM EVERARDO Administration Polyethylene Glycol 17 gm 01/17/25 14:13 Polyethylene Glycol 3350 17 Gm Powd.Pack PO QAM PRN Constipation Spironolactone 50 mg 01/18/25 09:00 01/20/25 08:49 Spironolactone 50 Mg Tablet PO 50 mg DAILY EVERARDO Administration Radiology Results: ITS Impressions Head CT 01/17/25 10:59 Impression: No intracranial hemorrhage, mass, or acute infarct. Mild generalized atrophy. Labs Labs: Laboratory Results - last 24 hr 01/20/25 05:35 WBC 7.6 RBC 4.86 Hgb 14.0 Hct 44.7 MCV 92.0 MCH 28.8 MCHC 31.3 L RDW 14.5 Plt Count 270 MPV 9.9 Immature Gran % (Auto) 0.5 Neut % (Auto) 65.7 Lymph % (Auto) 23.8 [place] % (Auto) 8.1 Eos % (Auto) 1.1 Baso % (Auto) 0.8 Lymph # (Auto) 1.80 [place] # (Auto) 0.6 Eos # (Auto) 0.1 Baso # (Auto) 0.1 Abs Immat Gran (auto) 0.04 H Absolute Neuts (auto) 5.0 Absolute Nucleated RBC 0.000 Nucleated RBC % 0.0 Sodium 138 Potassium 4.3 Chloride 107 Carbon Dioxide 25 Anion Gap 6 BUN 14 Creatinine 0.80 Estim Creat Clear Calc 35 Estimated GFR > 60 Glucose 89 Calcium 9.3 Magnesium 2.0 Total Bilirubin 0.6 AST 29 ALT 14 Alkaline Phosphatase 64 Total Protein 6.5 Albumin 3.7
[2025-01-20] MEDS: cefTRIAXone 1 GM in SODIUM CHLORIDE 0.9% IV 50 ML 100 ML IVPB (13:27)
[2025-01-20 13:48] VITALS: BP 138/61; PULSE 66; RESP 18; TEMP 36.2; O2SAT 98
[2025-01-20 19:20] VITALS: PULSE 66; RESP 16; O2SAT 91
[2025-01-20 22:00] VITALS: BP 121/66; PULSE 66; RESP 16; TEMP 36.4; O2SAT 91
[2025-01-21 06:00] VITALS: BP 129/63; PULSE 65; RESP 18; TEMP 36.6; O2SAT 93
[2025-01-21 06:12] LABS: Hematocrit 44.3 % (37.0-47.0); Hemoglobin 14.2 g/dL (12.0-15.0); Immature Granulocyte Percent A 0.3 % (0-0.5); Lymphocytes Absolute Auto 1.79 K/mm3 (0.9-3.2); Mean Corpuscular HGB Conc 32.1 g/dl (32-36); Mean Corpuscular Hemoglobin 28.6 pg (26-34); Mean Corpuscular Volume 89.1 fl (80-100); Nucleated Red Blood Cells Absolute Auto 0.000 K/mm3 (0.0-0.012); Nucleated Red Blood Cells Perc 0.0 % (0.0-0.2); Platelet Count Result 267 k/mm3 (150-375); Red Blood Count 4.97 M/mm3 (4.2-5.4); White Blood Count 7.5 K/mm3 (4.5-10.0)
[2025-01-21 06:40] LABS: Alanine Aminotransferase 15 U/L (6-35); Albumin Level 3.8 g/dL (3.5-5.1); Alkaline Phosphatase 69 U/L (38-126); Anion Gap 7 mmol/L (4-12); Aspartate Amino Transferase 26 U/L (14-36); Bilirubin,Total 0.4 mg/dL (0.2-1.3); Blood Urea Nitrogen 12 mg/dL (7-17); Calcium 9.5 mg/dL (8.4-10.2); Carbon Dioxide 24 mmol/L (22-30); Chloride 107 mmol/L (98-107); Estimated CRCL calculation 39 ml/min; Estimated Glomerular Filt Rate > 60; Glucose 93 mg/dL (65-110); Potassium 4.2 mmol/L (3.4-5.0); Sodium 138 mmol/L (137-145); Total Protein 6.8 g/dL (6.3-8.2)
--- NOTE | 2025-01-21 07:48 | P.PNIM_ITS ---
Progress Note: A&P Assessment and Plan (1) Altered mental status: Qualifiers: Altered mental status type: disorientation Qualified Code(s): R41.0 - Disorientation, unspecified Code(s): R41.82 - Altered mental status, unspecified Status: Acute Assessment and Plan: Head CT, 01/17: No intracranial hemorrhage, mass, or acute infarct. Mild generalized atrophy. +hallucinations, increased agitation starting day of evluation (01/17). Found to have a UTI, history of hallucinations with previous urinary tract infection. No focal deficits on exam. High suspicion for acute encephalopathy secondary to infection. Monitor mental status. UA: Turbid, 1+ blood, positive nitrates, 3+ leuks, greater than 100 WBC, 4+ bacteria with no epithelial cells * WBC: wnl * 01/19: Remains A&O x2 which is abnormal for her * Brain MRA pending * EKG SR 78 with first degree AV block. QTc 397. * Blood cultures no growth to date. (2) Urinary tract infection: Qualifiers: Hematuria presence: without hematuria Urinary tract infection type: acute cystitis Qualified Code(s): N30.00 - Acute cystitis without hematuria Code(s): N39.0 - Urinary tract infection, site not specified Status: Acute Assessment and Plan: UA: Turbid, 1+ blood, positive nitrates, 3+ leuks, greater than 100 WBC, 4+ bacteria with no epithelial cells * UC growing gram negative bacilli, sensitivities pending. * no previous resistances noted per micro review * started on Ceftriaxone on 01/17 * IV fluids: LR at 100 mL/hr x1L * supportive care (3) Hypertension: Qualifiers: Hypertension type: primary hypertension Qualified Code(s): I10 - Essential (primary) hypertension Code(s): I10 - Essential (primary) hypertension Status: Chronic Assessment and Plan: * chronic, currently 138/61. * continue home medications: Spironolactone * monitor (4) Prolapse of vaginal mckay: Code(s): N81.10 - Cystocele, unspecified Status: Acute Assessment and Plan: * Called EMS due to issues with Vaginal prolapse, unsure if previous diagnosis * OBGYN consulted, appreciate further recommendations * No prolapse noted on initial exam * Recommend follow-up in the outpatient setting after resolution of UTI * Consider vaginal pessary Plan Diet: Heart healthy GI Prophylaxis: N/a DVT Prophylaxis: SCDs IV fluids: LR at 100 mL/hour Lines/Tubes: Peripheral IV Code Status: Full code Subjective Date/time seen: 01/21/25 07:48 Review of Systems Review of Systems: All systems reviewed & are unremarkable except as noted in HPI and below Objective Data Vital Signs Vital Signs: Vital Signs - 24 hr 01/20/25 08:00 01/20/25 13:48 01/20/25 19:20 Temperature 97.2 F L Pulse Rate 66 66 Respiratory Rate 18 16 Blood Pressure 138/61 Pulse Oximetry 98 91 Oxygen Delivery Room Air Room Air Fraction of Inspired Oxygen 01/20/25 22:00 01/21/25 06:00 Temperature 97.6 F 97.8 F Pulse Rate 66 65 Respiratory Rate 16 18 Blood Pressure 121/66 129/63 Pulse Oximetry 91 93 Oxygen Delivery Fraction of Inspired Oxygen Intake/Output Intake/Output: Intake & Output 01/18/25 01/19/25 01/20/25 01/21/25 23:59 23:59 23:59 23:59 Intake Total 1582 3934 960 100 Output Total 920 343 9130 Balance 1031 3284 -140 100 Meds/Results Medications: Active Medications Generic Name Dose Route Start Last Admin Trade Name Freq PRN Reason Stop Dose Admin Acetaminophen 650 mg 01/17/25 14:13 01/20/25 04:57 Acetaminophen 325 Mg Tablet PO 650 mg Q6H PRN Administration Mild Pain (1-3) or Fever Docusate Sodium 100 mg 01/17/25 13:10 01/20/25 08:49 Docusate Sodium 100 Mg Capsule PO 100 mg DAILY EVERARDO Administration Ceftriaxone Sodium 1 gm/ 50 mls @ 100 mls/hr 01/18/25 12:00 01/20/25 13:27 Sodium Chloride IVPB 100 mls/hr Q24H EVERARDO Administration Ondansetron HCl 4 mg 01/17/25 14:13 Ondansetron Hcl Odt 4 Mg Tablet PO Q6H PRN Nausea And Vomiting Pantoprazole Sodium 40 mg 01/18/25 09:00 01/20/25 08:49 Pantoprazole 40 Mg Tablet PO 40 mg QAM EVERARDO Administration Polyethylene Glycol 17 gm 01/17/25 14:13 Polyethylene Glycol 3350 17 Gm Powd.Pack PO QAM PRN Constipation Spironolactone 50 mg 01/18/25 09:00 01/20/25 08:49 Spironolactone 50 Mg Tablet PO 50 mg DAILY EVERARDO Administration Radiology Results: ITS Impressions Head CT 01/17/25 10:59 Impression: No intracranial hemorrhage, mass, or acute infarct. Mild generalized atrophy. Brain MRA 01/20/25 19:19 IMPRESSION: Unremarkable MRA examination of the brain, as detailed above. Labs Labs: Laboratory Results - last 24 hr 01/20/25 01/21/25 05:35 06:03 WBC 7.5 RBC 4.97 Hgb 14.2 Hct 44.3 MCV 89.1 MCH 28.6 MCHC 32.1 RDW 14.4 Plt Count 267 MPV 9.6 Immature Gran % (Auto) 0.3 Neut % (Auto) 67.2 Lymph % (Auto) 23.8 [place] % (Auto) 7.3 Eos % (Auto) 0.9 Baso % (Auto) 0.5 Lymph # (Auto) 1.79 [place] # (Auto) 0.6 Eos # (Auto) 0.1 Baso # (Auto) 0.0 Abs Immat Gran (auto) 0.02 Absolute Neuts (auto) 5.0 Absolute Nucleated RBC 0.000 Nucleated RBC % 0.0 Sodium 138 Potassium 4.2 Chloride 107 Carbon Dioxide 24 Anion Gap 7 BUN 12 Creatinine 0.71 Estim Creat Clear Calc 39 Estimated GFR > 60 Glucose 93 Calcium 9.5 Magnesium 2.0 Total Bilirubin 0.4 AST 26 ALT 15 Alkaline Phosphatase 69 Total Protein 6.8 Albumin 3.8 Quality VTE Prophylaxis VTE prophylaxis: mechanical ordered
[2025-01-21 08:00] VITALS: PULSE 65; RESP 18; O2SAT 93
[2025-01-21] MEDS: DOCUSATE SODIUM 100 MG CAPSULE PO (09:03)
[2025-01-21] MEDS: PANTOPRAZOLE 40 MG TABLET PO (09:03)
[2025-01-21] MEDS: SPIRONOLACTONE 50 MG TABLET PO (09:03)
[2025-01-21] MEDS: NITROFURANTOIN MONOHYD MACROCR 100 MG CAP PO (09:03)
[2025-01-21 14:00] VITALS: BP 129/63; PULSE 65; RESP 18; TEMP 36.6; O2SAT 93
--- NOTE | 2025-02-02 14:20 | P.DS_ITS ---
DS: Admitting Diagnosis Discharge Date 01/21/25 Admitting Diagnosis Altered Mental status DS: Discharge Diagnosis Discharge Diagnosis (1) Altered mental status: Qualifiers: Altered mental status type: disorientation Qualified Code(s): R41.0 - Disorientation, unspecified Code(s): R41.82 - Altered mental status, unspecified Status: Acute (2) Urinary tract infection: Qualifiers: Hematuria presence: without hematuria Urinary tract infection type: acute cystitis Qualified Code(s): N30.00 - Acute cystitis without hematuria Code(s): N39.0 - Urinary tract infection, site not specified Status: Acute (3) Prolapse of female pelvic organs: Code(s): N81.9 - Female genital prolapse, unspecified Status: Acute DS: Summary Hospital Course Hospital Course: Arlette Villalobos was admitted for altered mental status, new hallucinations and found to have a UTI. Cognitive impairment at baseline. Hallucinations resolved with treatment of UTI. Vaginal prolapse likely contributing to frequent UTI?s, planning to treat outpatient. Altered mental status type Head CT, 01/17: No intracranial hemorrhage, mass, or acute infarct. Mild generalized atrophy. +hallucinations, increased agitation starting day of evluation (01/17). Found to have a UTI, history of hallucinations with previous urinary tract infection. No focal deficits on exam. High suspicion for acute encephalopathy secondary to infection. Monitor mental status. UA: Turbid, 1+ blood, positive nitrates, 3+ leuks, greater than 100 WBC, 4+ bacteria with no epithelial cells. Blood cultures no growth to date. EKG SR 78 with first degree AV block. QTc 397. WBC normal. A&O x2. 01/20 Brain MRA Unremarkable MRA examination of the brain Urinary tract infection UA: Turbid, 1+ blood, positive nitrates, 3+ leuks, greater than 100 WBC, 4+ bacteria with no epithelial cells. Urine culture grew Citrobacter. Treated with Ceftriaxone and continued on nitrofurantoin ?? 1. Citrobacter species ? M.I.C.??? RX? --------- --- ? * Amoxicillin/Clavulanic Acid? R? * Cefoxitin? R? * Cefepime? <=0.12?S ? * Cefpodoxime? =2?S ? * Ceftriaxone? <=0.25?S ? * Ciprofloxacin? <=0.06?S ? * Levofloxacin? <=0.12?S ? * Ertapenem? <=0.12?S ? * Gentamicin? <=1?S ? * Meropenem? <=0.25?S ? * Nitrofurantoin? <=16?S ? * Tetracycline? <=1 ?S ? * Tobramycin? <=1?S ? Recommended hydration, 1-2 liters of fluids a day Gyncology follow up for uterine prolapse. Interested in prophylaxis for UTI?s Hemorrhoids GI follow up for hemorrhoids/rectal prolapse Prolapse of vaginal mckay: Called EMS due to issues with Vaginal prolapse, unsure if previous diagnosis. OBGYN consulted, appreciate recommendations. Planning follow up outpatient, possible pessary ? Hypertension: chronic, stable. Continued home medications: Spironolactone Time Spent with Patient Time attestation: Total time spent providing and/or coordinating discharge services: 48 minutes Exam Narrative: General - Awake and alert. No acute distress Eyes - PERRLA, EOM intact ENT - No thrush, No erythema Neck - No noticeable or palpable swelling Lymph Nodes - No lymphadenopathy Cardiovascular - RRR no m/r/g, no JVD Lungs: Clear to auscultation, No wheezing, use of accessory muscles, no crackles or wheezes. Skin - Skin warm and dry, no wounds or rashes Abdomen - Normal bowel sounds, abdomen soft and nontender Extremities - No edema, cyanosis or clubbing Musculoskeletal - 5/5 strength, normal range of motion, no swollen or erythematous joints. Neurological ? Alert and oriented x 2-3, CN 2-12 grossly intact. Psych: Normal mood and affect Discharge Plan Discharge Attending physician on discharge: Zoe Mercado Consulting providers: Gilbert Hung; Jett Miller; Zoe Mercado; Jackelin Tejada; Alon Aburto; Huma Ramos; Gustavo Prescott; Shona Wei Discharging Clinician: Zoe Mercado Anticipated Discharge Date/Time: 01/21/25 14:35 Patient Disposition: ID Alf/Asst Living Activity: may shower Diet: regular Discharge Instructions: Drink plenty of water, 1.5-2 liters a day. Follow up with your PCP in 1-2 weeks. Agree with follow up with gynecology for uterine prolapse and with colorectal for hemorrhoids/prolapse. Gynecology may recommend a pessary for uterine prolapse. There are options for UTI prevention that include cranberry tablets, vaginal estrogen, d-mannose, methenamine, and prophylactic antibiotics for prevention. Discuss with your PCP which will be best for you Patient Instructions: Antibiotic Form Patient Language: [place] Stand Alone Forms: General Discharge Information Follow-up/Referrals: Gerardo,Nicole Murillo, [Primary Care Provider] - 2 Weeks Discharge Medications: New nitrofurantoin monohyd/m-cryst [Macrobid] 100 mg Capsule 100 mg PO Q12HR Qty: 6 0RF Continued omeprazole 20 mg capsule,delayed release(DR/EC) 20 mg PO DAILY spironolactone 50 mg tablet 50 mg PO DAILY docusate sodium 100 mg capsule 100 mg PO DAILY Date of admission: 01/19/25 10:07 Primary Care Provider: GerardoNicole Admitting Provider: Crissy Rojas Attending physician on admission: Zoe Mercado Condition: Stable Hospitalist MIPS Heart Failure (Exclusion) Patient has history of Heart Transplant or Left Ventricular Assistive Device?: No IF YES, STOP HERE Heart Failure (Qualifier) Patient has current or prior documentation of LVEF less than or equal to 40%, or mod/servere depressed LVSF?: No IF NO, STOP HERE
== END 2025-01-21 15:51 | DRG 690 ==
LOC: ANHED 11:52 → ANH3MEDSUR 12:33
PROVIDERS: Physician Assistant; Student in an Organized Health Care Education/Training Program; Admitting Provider Internal Medicine; Emergency Provider Emergency Medicine; PCP Internal Medicine; Visit Provider Nurse Practitioner Acute Care
DX: N39.0 Urinary tract infection, site not specified (principal); G93.49 Other encephalopathy; R44.3 Hallucinations, unspecified; I10 Essential (primary) hypertension; E78.5 Hyperlipidemia, unspecified; N81.10 Cystocele, unspecified; K62.3 Rectal prolapse; K21.9 Gastro-esophageal reflux disease without esophagitis; Z90.711 Acquired absence of uterus with remaining cervical stump
CPT/HCPCS: 36415; 70450; 70544; 80048; 80053; 81001; 82948; 83605; 83735; 85025; 85610; 85730; 87040; 87086; 93005; 96374; 97110; 97162; 97165; 97530; 97535; 99285; A9270; G0378; J0696; J7120